=== PATIENT | male | born 1945 | race Caucasian/White ===

== ENCOUNTER 2016-10-23 10:54 | Emergency (ER) ==
[2016-10-23] MEDS ORDERED: XYLOCAINE-MPF 1% INJ ONE (11:34)
[2016-10-23] MEDS ORDERED: DECADRON IM ONE (11:34)
--- NOTE | 2016-10-23 11:36 | PROVIDER DOCUMENTATION ---
[facility]-EE General - General Chief Complaint: Eye Complaint Stated Complaint: EYE INFECTION/SWELLING Time Seen by Provider: 10/23/16 11:14 Source: patient Allergies/Adverse Reactions: Patient Allergies Allergy/AdvReac Type Severity Reaction Status Date / Time Penicillins Allergy SHORTNESS Verified 06/21/16 15:04 OF BREATH Home Medications: Home Medication List Medication Instructions Recorded Confirmed Last Taken Type Simvastatin 40 mg PO DAILY 03/25/16 06/21/16 Unknown History Diltiazem [Cardizem] 60 mg PO BID 06/21/16 06/21/16 Unknown History Lorazepam [Ativan] 0.5 mg PO BID PRN #20 tablet 06/21/16 Unknown Rx Omeprazole [Prilosec] 20 mg PO DAILY@0700 #30 capsule 06/21/16 Unknown Rx - History of Present Illness-EENT General Nature of Presenting Problem: patient is a 71 y/o M that presents to the ER with right eye swelling, pain, drainage x 3 days. has gotten worse. denies injury. report rubbing it and making it worse EENT Location: reports: eye (R) Quality of Pain: reports: dull Severity: reports: moderate Onset/Duration: reports: gradual, 3 days ago Timing: reports: still present, getting worse Prearrival Treatment: Initiated no prearrival treatment Associated Symptoms: denies: fever, nasal congestion/drainage, poor fluid intake , sinus infection, tooth pain, voice change Locality of Occurance: Home Similar Symptoms Previously?: No Recently seen or treated by another doctor?: No - Eyes Eye Problem Symptoms: reports: eye pain, burning, itching, redness, matting, orbital swelling, eyelid swelling Apparent Injury?: No Review of Systems - Adult - REVIEW OF SYSTEMS - ADULT Constitutional: denies: chills, fever Eyes: reports: discharge, eye pain, redness Ears, Nose, Mouth & Throat: reports: no symptoms reported Cardiovascular: reports: chest pain (chronic). denies: syncope Respiratory: denies: cough, shortness of breath, wheezing Gastrointestinal: reports: no symptoms reported Genitourinary: reports: no symptoms reported Musculoskeletal: reports: no symptoms reported Integumentary: reports: no symptoms reported Neurological: reports: no symptoms reported Psychiatric: reports: no symptoms reported Endocrine: reports: no symptoms reported Hematologic/Lymphatic: reports: no symptoms reported Allergic/Immunologic: reports: no symptoms reported All Other Systems: Reviewed and Negative Past History - Adult - PAST MEDICAL HISTORY-ADULT Review of Records: reports: Old Records Reviewed, Nursing Assessment Review, Medications Reviewed Major Childhood Illnesses: reports: Hepatitis B Cardiovascular: reports: HTN, hyperlipidemia Gastrointestinal: reports: hepatitis (B) Neurological: reports: dementia Psychiatric: reports: depression, ptsd - PRIOR SURGERIES/PROCEDURES Surgical/Procedure History: reports: orthopedic (extremity) - IMMUNIZATION STATUS Childhood Immunizations: See Nurse Assessment Flu Vaccine: See Nurse Assessment - FAMILY HISTORY Family History: reviewed, not pertinent - SOCIAL HISTORY Smoking: cigarettes, less than 1 pack/day Living Situation: family Physical Exam- EENT - Physical Exam EENT Initial Vital Signs Reviewed: Yes General Appearance: alert, no apparent distress Eye Exam: right eye: other (swelling to upper and lower lid, clear runny eye), bilateral eye: PERRL Ear Exam: bilateral ear: canal normal, TM normal Nasal Exam: normal inspection. negative: foreign body, sinus tenderness Throat Exam: normal mouth inspection, pharynx normal Neck: full range of motion, normal inspection Respiratory: lungs clear, normal breath sounds, no respiratory distress, no accessory muscle use Cardiovascular: regular rate, rhythm, no murmur Extremity: normal range of motion, normal inspection, no pedal edema Integumentary: normal color, warm/dry Neurologic: grossly normal, no motor/sensory deficits Psych/Mental Status: normal mood/affect, normal thought content, normal thought process, oriented x 3 Progress - PLAN OF CARE/RESULTS Progress/Plan/Lab Results: Vital Signs Temp Pulse Resp BP Pulse Ox 10/23/16 10:57 97.9 F 76 18 173/72 95 Penicillins Allergy (Verified 06/21/16 15:04) SHORTNESS OF BREATH Simvastatin 40 mg PO DAILY 03/25/16 Diltiazem [Cardizem] 60 mg PO BID 06/21/16 Lorazepam [Ativan] 0.5 mg PO BID PRN #20 tablet 06/21/16 Omeprazole [Prilosec] 20 mg PO DAILY@0700 #30 capsule 06/21/16 Orders Category Date Time Status Visual Acuity DIRECTED Care 10/23/16 11:34 Active Dexamethasone [Decadron] Med 10/23/16 11:34 Discontinued 8 mg IM NOW ONE Lidocaine 1% Pf [Xylocaine-Mpf 1%] Med 10/23/16 11:34 Discontinued 5 ml INJ NOW ONE EKG [EKG] Stat Ther 10/23/16 11:34 Ordered pt will be d/c home f/u with ophthamologist. pt was clinically stable, understood instructions and results, rx given Departure - Departure Time of Disposition Order: 12:39 DIAGNOSIS: Conjunctivitis Qualifiers: Conjunctivitis type: acute Acute conjunctivitis type: bacterial Laterality: right Qualified Code(s): H10.31 - Unspecified acute conjunctivitis, right eye Disposition: HOME 01 Certified Medical Emergency: Emergent Condition: Stable Additional Instructions: follow up with eye doctor ED Follow Up Instructions: You have been treated by a care provider in the Emergency Department. These instructions are being provided to you so you can have an understanding of how to care for yourself upon discharge. Upon discharge from the Emergency Department, you are responsible for making arrangements for follow-up care by a physician of your choice. Take all prescribed medications as directed. Return to the Emergency Department immediately for any new or worsening symptoms. You may call the Physician Referral phone number at [phone] to obtain a list of Physicians who are taking new patients. Referrals: None,PCP [Primary Care Provider] - Baldo Bell Jr, MD [STAFF PHYSICIAN] - (as needed) Instructions: Bacterial Conjunctivitis, [id number] Attestation - Scribe Verification/Attestation Scribe:: Erick Goodman Acting as Scribe for:: Wendy Patiño Scribe documention review:: This chart was documented by a scribe and accurately reflects the service the provider performed and the decisions made by the provider. Physician Attestation - Physician Attestation I, the provider, attest to the following statement:: Wendy Patiño Physician documentation Attestation:: This documentation recorded by the scribe accurately reflects the service I personally performed and the decisions made by me.
[2016-10-23 12:44] VITALS: BP 141/73
--- NOTE | 2016-10-23 13:32 | EKG Report ---
Test Performed on : 10/23/2016 1:09:18 PM Test Reason : Chronic CP, no pain currently Blood Pressure : / mmHG Vent. Rate : 049 BPM Atrial Rate : 049 BPM P-R Int : 180 ms QRS Dur : 086 ms QT Int : 440 ms P-R-T Axes : 072 070 073 degrees QTc Int : 397 ms Sinus bradycardia. Otherwise normal ECG When compared with ECG of 21-JUN-2016 16:58, No significant change was found Unconfirmed Result
== END 2016-10-23 13:17 | disposition home or self-care (01) ==
LOC: P.ED 10:54
DX: H10.31 Unspecified acute conjunctivitis, right eye (principal); H57.11 Ocular pain, right eye; R22.0 Localized swelling, mass and lump, head; G89.29 Other chronic pain; R07.9 Chest pain, unspecified; I10 Essential (primary) hypertension; E78.5 Hyperlipidemia, unspecified; B19.10 Unspecified viral hepatitis B without hepatic coma; F17.210 Nicotine dependence, cigarettes, uncomplicated; Z79.899 Other long term (current) drug therapy
CPT/HCPCS: 93005; 96372; J1100

== ENCOUNTER 2017-04-01 14:09 | Inpatient (IN) ==
[2017-04-01] MEDS ORDERED: NS 1,000 ML IV ONE (14:47)
--- NOTE | 2017-04-01 14:51 | Diag Imaging Result Doc PS360 ---
EXAM: CHEST-1 VIEW HISTORY: HIP FRACTURE TECHNIQUE: PA COMPARISON: 06/21/2016 FINDINGS: There is cardiomegaly.. The pulmonary vasculature is not congested. No infiltrate, effusion, or pneumothorax is appreciated. IMPRESSION: Cardiomegaly. . Electronically signed by Shirley Quinonez 04/01/2017 2:48 PM
--- NOTE | 2017-04-01 15:14 | Diag Imaging Result Doc PS360 ---
EXAM: XRAY PELVIS W/HIP 2-3VW RT HISTORY: fall TECHNIQUE: Three views COMPARISON: None. FINDINGS: There is a fracture through the right temporal neck there is angulation. There is no dislocation. There is diffuse joint space narrowing. IMPRESSION: Right femoral neck fracture. Electronically signed by Shirley Quinonez 04/01/2017 3:12 PM
[2017-04-01 15:19] LABS: BASO% 0.1 % (0.0-0.8); EOS# 0.01 X1000 (0.0-0.7); EOS% 0.1 % (0.0-10.0); HEMATOCRIT 41.4 % (42.0-52.0); HEMOGLOBIN 14.4 g/dL (14.0-18.0); IMM GRAN# 0.04 X1000 (0.0-0.04); IMM GRAN% 0.3 % (0.0-0.5); LYMPH# 0.99 X1000 (1.2-3.4); MANUAL DIFF NEEDED? NO; MCH 30.8 PG (27-31); MCHC 34.8 g/dL (33-37); MCV 88.5 FL (81-99); MONO# 0.69 X1000 (0.11-0.59); MONO% 4.9 % (1.7-9.3); MPV 9.9 FL (7.4-10.4); NEUT% 87.6 % (42.2-75.2); PLT 163 X1000 (130-400); RBC 4.68 XMIL (4.7-6.1)
--- NOTE | 2017-04-01 15:20 | EKG Report ---
Test Performed on : 04/01/2017 2:59:30 PM Test Reason : CHEST PAIN Blood Pressure : / mmHG Vent. Rate : 063 BPM Atrial Rate : 063 BPM P-R Int : 162 ms QRS Dur : 078 ms QT Int : 404 ms P-R-T Axes : 068 075 074 degrees QTc Int : 413 ms Normal sinus rhythm. Normal ECG When compared with ECG of 23-OCT-2016 13:09, No significant change was found Unconfirmed Result
[2017-04-01 15:27] LABS: INR 0.93 (0.86-1.15); PROTIME 13.2 Seconds (12.1-15.5); PTT PL 31.7 Seconds (22.6-43.9)
[2017-04-01 15:48] LABS: AGAP 12; ALBUMIN 4.1 g/dL (3.5-5.0); ALKALINE PHOSPHATASE 78 U/L (32-122); BUN 13 mg/dL (8-22); CALCIUM 8.4 mg/dL (8.8-10.2); CHLORIDE 97 mmol/L (98-107); CK PROFILE 95 U/L (24-204); COSMO 269; GOT 14 U/L (10-34); GPT 11 U/L (10-44); MAGNESIUM 2.1 mg/dL (1.5-2.7); POTASSIUM 3.8 mmol/L (3.5-5.1); SODIUM 133 mmol/L (136-145); TCO2 24 mmol/L (25-35); TOTAL PROTEIN 7.2 g/dL (6.3-8.3)
[2017-04-01] MEDS ORDERED: ZOFRAN IV ONE (15:57)
[2017-04-01] MEDS ORDERED: DILAUDID IV ONE ×2 (15:57→16:37)
--- NOTE | 2017-04-01 16:11 | PROVIDER DOCUMENTATION ---
This chart was entered by Denisha Mar Scribe, acting as scribe for Wendy Patiño MD. HPI-Musculoskeletal Pain/Inj - GENERAL Chief Complaint: Fall Stated Complaint: fall Time Seen by Provider: 04/01/17 14:23 Source: patient - HX OF PRESENT ILLNESS-MUSKULOSKELTAL Nature of Presenting Problem: Patient is a 72 year old male who presents in the ED via EMS for fall injuries. He states he was trying to put his shoes on when he lost his balance, fell, and landed on his right hip. He also states he has had right hip pain since the fall , and states he has been unable to move his right hip/fall. He reports he landed on wood jennifer, and nursing staff states patient was given Fentanyl IV en route to ED per EMS. Patient denies loss of consciousness, chest pain, abdominal pain, and any other symptoms/injuries. Quality of Pain: reports: sharp Severity in ED: moderate, severe Onset/Duration: abrupt, just prior to arrival Timing: still present Modifying Factors: improves with: nothing Any recent injury?: Yes (fall just prior to arrival in ED) Similar Symptoms Previously?: No Recently seen or treated by another doctor?: No - FALL INJURY Location of Pain/Injury: reports: pelvis (right hip) Pain Radiation: reports: no radiation Reason for Fall: reports: lost balance Symptoms prior to fall:: reports: none Loss of Consciousness: no loss of consciousness Injury Associated Symptoms: reports: other (right hip pain) Review of Systems - Adult - REVIEW OF SYSTEMS - ADULT Constitutional: reports: no symptoms reported Eyes: reports: no symptoms reported Ears, Nose, Mouth & Throat: reports: no symptoms reported Cardiovascular: reports: no symptoms reported. denies: chest pain Respiratory: reports: no symptoms reported Gastrointestinal: reports: no symptoms reported. denies: abdominal pain Genitourinary: reports: no symptoms reported Musculoskeletal: reports: joint pain (right hip pain/injury post-fall) Integumentary: reports: no symptoms reported Neurological: reports: no symptoms reported Psychiatric: reports: no symptoms reported Endocrine: reports: no symptoms reported Hematologic/Lymphatic: reports: no symptoms reported Allergic/Immunologic: reports: no symptoms reported All Other Systems: Reviewed and Negative Past History - Adult - PAST MEDICAL HISTORY-ADULT Review of Records: reports: Old Records Reviewed, Nursing Assessment Review, Medications Reviewed Major Childhood Illnesses: reports: Hepatitis B Cardiovascular: reports: HTN, hyperlipidemia Gastrointestinal: reports: hepatitis (B) Obstetrical/Gynecological: reports: denies history Genitourinary: reports: denies history Musculoskeletal: reports: denies history Neurological: reports: dementia Psychiatric: reports: depression, ptsd Endocrine/Immune: reports: denies history Other Conditions: reports: denies history - PRIOR SURGERIES/PROCEDURES Surgical/Procedure History: reports: orthopedic (extremity) - IMMUNIZATION STATUS Childhood Immunizations: See Nurse Assessment Flu Vaccine: See Nurse Assessment - FAMILY HISTORY Family History: reviewed, not pertinent - SOCIAL HISTORY Smoking: cigarettes Substance Use: none/never Alcohol Use Frequency: never Living Situation: family Physical Exam-Injury Related - Physical Exam-Injury Related Initial Vital Signs Reviewed: Yes General Appearance: alert, no apparent distress Immobilization?: negative: backboard, C-collar, applied in ED, applied ERGONOMIC SPECIALIST Eyes: PERRL/EOMI, pink conjunctivae Head, Ears, Nose, Mouth & Throat: normocephalic/atraumatic, moist mucous membranes Neck: non-tender, full range of motion, supple, normal inspection Respiratory: chest non-tender, lungs clear, normal breath sounds, no pleuratic chest pain, no respiratory distress, no accessory muscle use Cardiovascular: normal peripheral pulses, regular rate, rhythm, no edema, no gallop, no JVD, no murmur Chest/Breast: deferred Abdominal Exam: non tender, soft, no organomegaly, no pulsatile mass Female Genitalia/Pelvic Exam: deferred Male Genitalia: deferred Rectal Exam: deferred Hemoccult Exam: deferred Lymphatic: no adenopathy Back Exam: normal inspection, no CVA tenderness, no vertebral tenderness Extremity: no pedal edema, no calf tenderness, other (right hip tender to palpation and limited ROM secondary to pain) Integumentary: normal color, warm/dry Neurologic: grossly normal, no motor/sensory deficits Psych/Mental Status: normal mood/affect, normal thought content, normal thought process, oriented x 3 - Glascow Coma Score Best Eye Response ([place]): (4) open spontaneously Best Verbal Response ([place]): (5) oriented Best Motor Response ([place]): (6) obeys commands Rowena Total: 15 Progress - PLAN OF CARE/RESULTS Progress/Plan/Lab Results: Vital Signs - 8 hr 04/01/17 14:09 Temperature 98 F Pulse Rate 63 Respiratory Rate 18 Blood Pressure 196/100 O2 Sat by Pulse Oximetry 96 Laboratory Results - last 24 hr 04/01/17 04/01/17 04/01/17 15:00 15:00 15:00 WBC RBC Hgb Hct MCV MCH MCHC RDW Std Deviation Plt Count MPV Immature Gran % (Auto) Neut % (Auto) Lymph % (Auto) [place] % (Auto) Eos % (Auto) Baso % (Auto) Immature Gran # (Auto) Neut # (Auto) Lymph # (Auto) [place] # (Auto) Eos # (Auto) Baso # (Auto) PT INR APTT (Factor Assay) Sodium 133 L Potassium 3.8 Chloride 97 L Carbon Dioxide 24 L Anion Gap 12 BUN 13 Creatinine 1.1 Estimated GFR/1.73 m2 > 60 BUN/Creatinine Ratio 12 Glucose 149 H Calculated Osmolality 269 Calcium 8.4 L Magnesium 2.1 Total Bilirubin 0.30 AST 14 ALT 11 Alkaline Phosphatase 78 Creatine Kinase 95 Troponin T < 0.010 Wph-U-Ugoedbtzety Pept 147 Total Protein 7.2 Albumin 4.1 Globulin 3.0 Albumin/Globulin Ratio 1.0 04/01/17 04/01/17 15:00 15:00 WBC 14.16 H RBC 4.68 L Hgb 14.4 Hct 41.4 L MCV 88.5 MCH 30.8 MCHC 34.8 RDW Std Deviation 13.6 Plt Count 163 MPV 9.9 Immature Gran % (Auto) 0.3 Neut % (Auto) 87.6 H Lymph % (Auto) 7.0 L [place] % (Auto) 4.9 Eos % (Auto) 0.1 Baso % (Auto) 0.1 Immature Gran # (Auto) 0.04 Neut # (Auto) 12.41 H Lymph # (Auto) 0.99 L [place] # (Auto) 0.69 H Eos # (Auto) 0.01 Baso # (Auto) 0.02 PT 13.2 INR 0.93 APTT (Factor Assay) 31.7 Sodium Potassium Chloride Carbon Dioxide Anion Gap BUN Creatinine Estimated GFR/1.73 m2 BUN/Creatinine Ratio Glucose Calculated Osmolality Calcium Magnesium Total Bilirubin AST ALT Alkaline Phosphatase Creatine Kinase Troponin T Fpu-F-[place]ht Pept Total Protein Albumin Globulin Albumin/Globulin Ratio Orders Category Date Time Status Cardiac Monitoring DIRECTED Care 04/01/17 14:47 Active Saline Loc NOW Care 04/01/17 14:47 Active CHEST-1 VIEW [RAD] Routine Exams 04/01/17 14:38 Completed XRAY PELVIS W/HIP 2-3VW RT [RAD] Stat Exams 04/01/17 14:21 Completed CBC WITH ELECTRONIC DIFF [HEME] Stat Lab 04/01/17 15:00 Completed CK PROFILE [SP CHEM] Stat Lab 04/01/17 15:00 Completed COMPREHENSIVE METABOLIC PANEL [CHEM] Stat Lab 04/01/17 15:00 Completed MAGNESIUM [CHEM] Stat Lab 04/01/17 15:00 Completed PRO B-NATRIURETIC PEPTIDE Stat Lab 04/01/17 15:[address] Com[address]IME WITH INR PL [COAG] Stat Lab 04/01/17 15:[address] [COAG] Stat Lab 04/01/17 15:00 Completed TROPONIN T Stat Lab 04/01/17 15:00 Completed 0.9% Sodium Chloride Inj [Ns] 1,000 ml Med 04/01/17 14:47 Active IV 150 mls/hr Hydromorphone [Dilaudid] Med 04/01/17 15:57 Discontinued 1 mg IV NOW ONE Ondansetron [Zofran] Med 04/01/17 15:57 Discontinued 4 mg IV NOW ONE EKG [EKG] Stat Ther 04/01/17 14:47 Draft Result Diagrams: 04/01/17 15:00 04/01/17 15:00 - XRAY 1 XRAY Study: Chest XRAY Interpretation: cardiomegaly. 2 XRAY: Right XRAY Study: Pelvis Impression: Abnormal XRAY Interpretation: right femoral neck fracture. - CONSULTS/PCP/HOSPITALIST Notification #1 *Consult/PCP/Hospitalist*: Reihl Time Discussed: 16:00 Reason/Comments: recommends sending to [facility] - will consult Consult Disposition: other (will consult) #2 Consult: [place] Time Discussed: 16:02 Consult Disposition: Admit Departure - Departure Date of Disposition Decision: 04/01/17 Time of Disposition Decision: 16:03 DIAGNOSIS: Fracture of femoral neck, right Disposition: ADMITTED INPATIENT 09 Certified Medical Emergency: Emergent Condition: Stable Referrals and Follow-Ups: None,PCP [Primary Care Provider] - - Critical Care Note This patient required my direct & personal management of CC.: No Attestation - Physician/ LIZBETH Attestation Patient care was provided by Advanced Practice Provider:: No The physician spent face to face time with patient:: Yes Advanced Practice Provider documentation review:: Supervising physician onsite and consulted in the evaluation and care of this patient. The physician did have a face to face encounter with the patient. This chart was documented by the indicated scribe, (Denisha Mar Scribe) and accurately reflects the services I performed and decisions made by me, Wendy Patiño MD, as attested by the provider's signature.
--- NOTE | 2017-04-01 16:11 | ED EKG INTERP ---
This chart was entered by Denisha Mar Scribe, acting as scribe for Wendy Patiño MD. EKG Interpretation - EKG Time of EKG reading by physician:: 14:59 EKG Read and Signed by:: Wendy Patiño EKG Interpretation (*Must complete 3 of following elements*): Normal Rate: 63 Rhythm: normal sinus rhythm [place]: normal QRS: normal AK Interval: normal ST Wave: normal Attestation - Physician/ LIZBETH Attestation Patient care was provided by Advanced Practice Provider:: No The physician spent face to face time with patient:: Yes Advanced Practice Provider documentation review:: Supervising physician onsite and consulted in the evaluation and care of this patient. The physician did have a face to face encounter with the patient. This chart was documented by the indicated scribe, (Denisha Mar Scribe) and accurately reflects the services I performed and decisions made by me, Wendy Patiño MD, as attested by the provider's signature.
[2017-04-01] MEDS ORDERED: APRESOLINE IV ONE (16:37)
--- NOTE | 2017-04-01 17:56 | HISTORY AND PHYSICAL ---
CHIEF COMPLAINT: Fall with right hip pain. HISTORY OF PRESENT ILLNESS: This is a very pleasant, 72-year-old male who presented to the emergency room via EMS after falling. He stated that he was trying to put his shoes on and he lost his balance and landed on his right hip. He developed severe pain at the time of impact which continues. RLE is shortened and externally rotated. Range of motion is limited to pain. Pedal pulse palpable, capillary refill < 10 sec, right foot. He denies any loss of consciousness, any dizziness or syncopal episodes. X-ray of the right hip and pelvis revealed a fracture through the right femoral neck with angulation, no dislocation. There is a diffuse joint space narrowing. PAST MEDICAL HISTORY: Hypertension, hyperlipidemia, hepatitis B, PTSD, and depression. PAST SURGICAL HISTORY: Arthroscopic to knee. SOCIAL HISTORY: He smokes half a pack a day. He denies alcohol. He did quit 15 years ago, and no illicit drug use. ALLERGIES: Penicillin which causes shortness of breath. HOME MEDICATIONS: Seroquel 50 mg at bedtime, Cardura 2 mg at bedtime, Cardizem 60 b.i.d., Celexa 20 at bedtime. REVIEW OF SYSTEMS: A 14 point review of systems is discussed with the patient with pertinent positives stated in HPI. He denied any palpitations, syncope, dizziness, nausea , vomiting, diarrhea, constipation, black or bloody vomitus, black or bloody stools, any shortness of breath, PND, orthopnea, cough, any issues. PHYSICAL EXAMINATION: GENERAL: This is a 72-year-old male who is lying in the bed, in no distress. VITAL SIGNS: Blood pressure is 178/86, with heart rate of 63, respirations are 18, temperature is 98 degrees with room air saturations 96%-97%. HEENT: Head is normocephalic, atraumatic. Pupils equal, round, react to light. EOMs are intact. Sclerae anicteric. Mucous membranes are moist. NECK: Supple. Trachea midline. CARDIOVASCULAR: Regular rate and rhythm. S1, S2 appreciated. PULMONARY: Breath sounds are clear. No increased work of breathing noted. GASTROINTESTINAL: Abdomen is soft, nontender, nondistended with bowel sounds in all 4 quadrants. EXTREMITIES: No clubbing, cyanosis, or edema. Calves are nontender. Pulses are palpable x4. MUSCULOSKELETAL: She has good range of motion to extremities, excluding his right lower extremity, he has limited range of motion due to pain. DIAGNOSTIC: WBC is 14.1, with hemoglobin 14, hematocrit 41, and platelets of 163,000. Sodium is 133, potassium 3.8, BUN 13, creatinine 1.1, with a glucose of 149. X-ray of the hip and pelvis revealed right femoral neck fracture. ASSESSMENT: 1. Right femoral neck fracture. 2. Hypertension. 3. History of dementia. 4. History of hepatitis B. 5. Tobacco use and abuse. PLAN: He will be transferred to [facility] [place] for orthopedics consult and repair. . We will identify his home medications and continue as appropriate. He will receive IV pain and nausea medications. Further treatments pending hospital course. Dictated by VIVIAN Esposito for Diego Kay MD cc: VIVIAN Esposito MD MTDD
[2017-04-01] MEDS ORDERED: PNEUMOVAX 23 IM ONE (20:00)
[2017-04-01] MEDS ORDERED: TYLENOL PO PRN (20:46)
[2017-04-01] MEDS ORDERED: NS 1,000 ML IV SCH (20:46)
[2017-04-01] MEDS ORDERED: ZOFRAN IV PRN (20:46)
[2017-04-01] MEDS ORDERED: DILAUDID IV PRN (20:46)
[2017-04-01] MEDS ORDERED: NS 1,000 ML ONE (20:56)
[2017-04-01] MEDS ORDERED: DILAUDID ONE (20:56)
[2017-04-01] MEDS: SEROQUEL PO SCH (21:01)
[2017-04-01] MEDS: CELEXA PO SCH (21:01)
[2017-04-01] MEDS: CARDIZEM PO SCH (21:01)
[2017-04-01] MEDS ORDERED: NICODERM PATCH TD ONE (21:15)
[2017-04-01 22:36] LABS: URINE SOURCE CATH
[2017-04-01 22:40] LABS: BILIRUBIN URINE NEGATIVE (NEGATIVE); BLOOD URINE MODERATE (NEGATIVE); COLOR YELLOW; GLUCOSE URINE NEGATIVE (NEGATIVE); LEUKOCYTES URINE LARGE (NEGATIVE); NITRITE URINE POSITIVE (NEGATIVE); PH URINE 7.5; PROTEIN URINE TRACE mg/dL (NEGATIVE); SP GRAVITY URINE 1.016; TURBIDITY URINE HAZY (CLEAR); URINE MICRO REVIEW NEEDED? YES; UROBILINOGEN URINE NORMAL (NORMAL)
[2017-04-01 22:47] LABS: UR EPITHELIAL CELLS <10 /HPF (<10); URINE BACTERIA 4+ /HPF; URINE CULTURE NEEDED? YES; URINE WBC TNTC /HPF (<10)
[2017-04-01 23:09] LABS: URINE CASTS NONE SEEN
[2017-04-02] MEDS: CARDURA PO SCH ×2 (00:06→20:37)
[2017-04-02] MEDS: DILAUDID IV PRN ×2 (06:14→09:35)
[2017-04-02 06:37] LABS: INR 1.02; PROTIME 10.7 Seconds (9.2-11.7); PTT 28.7 Seconds (22.0-36.0)
[2017-04-02 06:39] LABS: BASO% 0.1 % (0.0-0.8); HEMATOCRIT 39.9 % (42.0-52.0); HEMOGLOBIN 13.8 g/dL (14.0-18.0); LYMPH# 1.05 X1000 (1.2-3.4); LYMPH% 8.7 % (20.5-51.1); MANUAL DIFF NEEDED? YES; MCH 30.9 PG (27-31); MCHC 34.6 g/dL (33-37); MCV 89.5 FL (81-99); MONO# 0.66 X1000 (0.11-0.59); MONO% 5.5 % (1.7-9.3); MPV 10.2 FL (7.4-10.4); NEUT% 85.7 % (42.2-75.2); PLT 143 X1000 (130-400); RBC 4.46 XMIL (4.7-6.1)
[2017-04-02 06:50] LABS: LYMPHS 9 % (21-51); MONO 3 % (1-9)
[2017-04-02 06:53] LABS: AGAP 17; BUN 15 mg/dL (8-22); CALCIUM 7.7 mg/dL (8.8-10.2); CHLORIDE 95 mmol/L (98-107); COSMO 268; POTASSIUM 4.2 mmol/L (3.5-5.1); SODIUM 133 mmol/L (136-145); TCO2 21 mmol/L (25-35)
[2017-04-02] MEDS: CARDIZEM PO SCH ×3 (09:36→20:37)
[2017-04-02] MEDS ORDERED: QUELICIN (DOSE) ONE (10:14)
[2017-04-02] MEDS ORDERED: XYLOCAINE-MPF 2% ONE (10:14)
[2017-04-02] MEDS ORDERED: DIPRIVAN 1% ONE (10:15)
[2017-04-02] MEDS ORDERED: NEOSPORIN G.U. IRRIGANT ONE (10:19)
[2017-04-02] MEDS ORDERED: KEFZOL 2 GM/D5W 2 GM/50 ML IVPB ONE (10:39)
[2017-04-02] MEDS ORDERED: OFIRMEV 1000 MG/ISOTONIC SOLN 0 MG/0 ML BOTTLE ONE (11:11)
[2017-04-02] MEDS ORDERED: OFIRMEV 1000 MG/ISOTONIC SOLN 1,000 MG/100 ML BOTTLE ONE (11:12)
[2017-04-02] MEDS ORDERED: MORPHINE ONE (11:15)
[2017-04-02] MEDS ORDERED: ZOFRAN ONE (11:17)
--- NOTE | 2017-04-02 11:20 | CONSULTATION ---
DATE OF CONSULTATION: 04/02/2017 ADMITTING PHYSICIAN: Dr. Angus Kay. CONSULTING PHYSICIAN: Dr. Kevin Álvarez. CHIEF COMPLAINT: Right hip pain. HISTORY OF PRESENT ILLNESS: Mr. Miller is a 72-year-old, white male who has experienced right hip pain status post a mechanical fall at his home yesterday. He was brought to the emergency room at [facility] where findings were consistent with a right femoral neck fracture. He denies any other associated injuries, head trauma, alterations in mental status, or visual disturbances. Primary care provider: He receives his care through the [facility]. ALLERGIES: Penicillin. PAST MEDICAL HISTORY: 1. Hypertension. 2. Hyperlipidemia. 3. Posttraumatic stress disorder. 4. Depression. 5. Dementia. 6. Carotid artery disease. 7. Benign prostatic hypertrophy. 8. History of kidney stones. PAST SURGICAL HISTORY: Lymph node excision. SOCIAL HISTORY: The patient is a . He maintains his own home. He is an every day smoker. HOME MEDICATIONS: 1. Xanax 1 mg 3 times a day. 2. Seroquel 50 mg at bedtime. 3. Cardura 2 mg at bedtime. 4. Cardizem 60 mg twice daily. 5. Celexa 20 mg at bedtime. REVIEW OF SYSTEMS: HEENT: Mr. Miller has a known history of carotid artery disease which is followed by the [facility]. Denies any recent dizzy spells or syncopal events. Cardiac: The patient has a history of high blood pressure. He also reports some atypical chest pain which is intermittent and not related to exertion. He is in no pain at this time. Pulmonary: The patient is a long-term smoker. Gastrointestinal: He has a history of gastritis and reports symptoms consistent with a history of reflux disease. Genitourinary: He has a history of kidney stones and also has benign prostatic hypertrophy. Neurological: He reports some mild dementia. He is his own outpatient scheduler. He has a history of posttraumatic stress disorder and depression. Musculoskeletal: He is here today for right hip fracture. Other: He is treated for hyperlipidemia. He has a history of prior hepatitis B exposure. PHYSICAL EXAMINATION: The patient is resting comfortably in bed. His daughter is at his bedside. He is articulate and able answer all questions.HEENT: Head is normocephalic, atraumatic. Pupils are equal, round. Nares are patent. Neck: Supple. Heart: Regular rate and rhythm. No murmurs, gallops, or rubs. Lungs: Clear to auscultation bilaterally. Abdomen: Round. Bowel sounds are present. It is nontender. Genitourinary: He has a Chew catheter in. Neurological: Gross motor function and sensory is intact on the right lower extremity. Musculoskeletal: Right lower extremity no gross deformities, edema or ecchymosis is noted. He has a good peripheral pulse. Other: He has a right elbow area of ecchymosis. IMPRESSION: Right femoral neck fracture. PLAN OF CARE: When medically clear we recommend proceeding with a right bipolar hemiarthroplasty. The risks and benefits of the procedure were explained to the patient including the risk of anesthesia, , bleeding, infection, damage to tendons, ligaments, nerves, blood vessels, the possibility of blood clots and other imponderables were discussed, and the patient and his family wished to proceed with operative management at this time. Dictated by JOE Dunn for Randolph Álvarez MD cc: JOE Dunn MD
--- NOTE | 2017-04-02 14:38 | OPERATIVE NOTE ---
PROCEDURE DATE: 04/02/2017 PREOPERATIVE DIAGNOSIS: Displaced right femoral neck fracture. POSTOPERATIVE DIAGNOSES: 1. Displaced right femoral neck fracture. 2. Degenerative joint disease of the hip. PROCEDURE: Right total hip replacement, posterior approach. SURGEONS: Solomon Álvarez MD. MUSHROOM PACKER: JOE Dunn. ANESTHESIA: General. COMPLICATIONS: None. PROCEDURE IN DETAIL: This is a 72-year-old male status post a fall with a displaced right hip fracture of the femoral neck, presents for surgical stabilization and replacement. Risks, benefits, and no guarantees were discussed and he is willing to proceed. He was taken to the operating room and satisfactory anesthesia obtained. He was placed in the lateral position with the right hip upward and all bony prominences padded. The right hip was prepped and draped in usual sterile fashion. A time-out was taken to confirm operative site, procedure, and patient. A posterior approach to the right hip was then undertaken through a curved incision centered over the greater trochanter. Dissection was carried down to the deep fascia in line with the incision. The Charnley retractor was inserted. The piriformis and short external rotators were released off the back of the hip capsule. A capsulotomy incision was made to expose the femoral neck fracture. The fracture was osteotomized for a clean neck cut roughly 8 mm above the lesser trochanter. The femoral head was removed. The acetabulum was inspected and noted to be degenerative with grade 4 chondromalacia in the superior part of the acetabulum. Decision was made to replace the acetabular with a acetabular cup for pain control at that time. Reaming of the acetabulum up to a 57 reamer was then accomplished. A 58 outer diameter DePuy Bagley DuoFix cup was then impacted in the acetabulum roughly 20 degrees of anteversion and 45 degrees of abduction. This had secure press-fit fixation. A 25 length screw was placed in the 12 o'clock position of the cup for additional security. A 10 degree polyethylene liner for a 36 head was impacted into this with a 10 degree buildup over the 10:30 position posteriorly. Sequential broaching of the femoral side was then undertaken with a [employer] Corail broach system up to a size 15 stem. This had secure axial and rotational stability. Standard neck geometry with a 1.5 neck length revealed good range of motion and restorationism of leg length. The stem was removed and a standard neck size 15 Corail stem impacted in the femur in roughly 10 degrees of anteversion with secure axial and rotational stability. A 36 ceramic head was then impacted on this and the hip reduced. Final range of motion revealed no anterior instability in extension and external rotation. The hip was flexed to 90 degrees with neutral adduction and internal rotation up to 80 degrees without dislocation. The wound was copiously irrigated with irrigant. It was repaired over the posterior capsule with interrupted 0 Vicryl, as well as the piriformis repaired with interrupted 0 Vicryl. A Hemovac drain was placed. It was copiously irrigated with irrigant. It was then closed over the drain with #1 Vicryl in the deep fascia, 2-0 Vicryl in the subcutaneous, and skin madi on the skin edges. Sterile dressings completed the closure and the patient was recovered from anesthesia and transferred to the recovery room in stable condition. No intraoperative complications were noted. Instrument count and sponge count was correct at the time of closure. cc: Randolph Álvarez MD
[2017-04-02] MEDS: NARCAN ONE ×3 (14:50→14:58)
[2017-04-02] MEDS ORDERED: ZOFRAN IV PRN (16:29)
[2017-04-02] MEDS ORDERED: MILK OF MAGNESIA PO PRN (16:29)
[2017-04-02] MEDS ORDERED: HALDOL IV PRN (16:29)
[2017-04-02] MEDS: KEFZOL 1 GM/D5W 1 GM/50 ML IVPB IV SCH (18:32)
[2017-04-02] MEDS: TYLENOL PO SCH ×2 (18:32→23:55)
[2017-04-02] MEDS: NS 1,000 ML IV SCH (18:32)
[2017-04-02] MEDS: XANAX PO PRN ×2 (18:44)
[2017-04-02] MEDS: COLACE PO SCH (20:37)
[2017-04-02] MEDS: SODIUM CHLORIDE 0.9% INJ SCH ×2 (20:37)
[2017-04-02] MEDS: PROTONIX IV SCH ×2 (20:37)
[2017-04-02] MEDS: SEROQUEL PO SCH (20:38)
[2017-04-02] MEDS: CELEXA PO SCH (20:38)
[2017-04-02] MEDS: OXY IR PO PRN ×2 (20:42→23:58)
[2017-04-03] MEDS: MORPHINE IV PRN ×10 (01:16→23:31)
[2017-04-03] MEDS: XANAX PO PRN ×3 (01:25→20:31)
[2017-04-03] MEDS: KEFZOL 1 GM/D5W 1 GM/50 ML IVPB IV SCH (02:02)
[2017-04-03] MEDS: NS 1,000 ML IV SCH ×2 (05:10→18:34)
[2017-04-03] MEDS: XARELTO PO SCH (05:10)
[2017-04-03 05:58] LABS: HEMATOCRIT 34.9 % (42.0-52.0); HEMOGLOBIN 11.6 g/dL (14.0-18.0)
[2017-04-03 06:06] LABS: AGAP 13; BUN 17 mg/dL (8-22); CALCIUM 7.2 mg/dL (8.8-10.2); CHLORIDE 97 mmol/L (98-107); COSMO 273; POTASSIUM 4.6 mmol/L (3.5-5.1); SODIUM 135 mmol/L (136-145); TCO2 25 mmol/L (25-35)
--- NOTE | 2017-04-03 08:04 | PROGRESS NOTE ---
DATE: 04/03/2017 SUBJECTIVE: Mr. Miller is seen on postop day 1 status post hip replacement for a fracture. OBJECTIVE: He is afebrile with stable vital signs. There is a mild increased temperature at 100.3. The bandage is clean and dry. He appears to be motor and sensory intact. PLAN: We have asked them to remove the drain, Chew, and IV. He can be mobilized as tolerated. He can be transferred to rehab or discharged home with home therapy Thursday, Thursday, or Thursday pending his overall medical condition. cc: Randolph Álvarez MD
[2017-04-03] MEDS: CARDIZEM PO SCH ×2 (09:59→20:31)
[2017-04-03] MEDS: FERROUS SULFATE PO SCH (09:59)
[2017-04-03] MEDS: PERIDEX MT SCH ×2 (09:59→21:51)
[2017-04-03] MEDS: TYLENOL PO SCH ×3 (09:59→23:32)
--- NOTE | 2017-04-03 16:28 | PROGRESS NOTE ---
DATE: 04/03/2017 SUBJECTIVE: Today Mr. Miller referred to be doing a little better. Still has some pain in the right hip. OBJECTIVE: Vital Signs: Stable. Blood pressure is 128/56, pulse of 87, respirations 16, temperature is 99.7 degrees. General: Mr. Miller is a 72-year-old male. He is in bed. BMI is 25.6. He is not in any distress. HEENT: Mucosa is pink and moist. Anicteric. Acyanotic. Neck: Supple. Chest: Clear. No crepitations. No rhonchi. Cardiovascular: Regular rate and rhythm. Abdomen: Soft. Extremities: No pedal edema. The right lower extremity is internally rotated and is slightly tender on mobilization. He does have some draining system in the surgical wound. ASSESSMENT: 1. Displaced right femoral neck fracture status post right total hip replacement by Dr. Álvarez. 2. Hypertension, stable. 3. Tobacco abuse. Patient has been counseled. 4. Constipation. Will address this more symptomatically. PLAN: So in general Mr. Miller is relatively stable. He is going to be evaluated by PT and start working with him. Social work has also been consulted for rehab placement. cc: Roberto Pires MD
[2017-04-03] MEDS: COLACE PO SCH (20:31)
[2017-04-03] MEDS: CARDURA PO SCH (20:31)
[2017-04-03] MEDS: CELEXA PO SCH (20:31)
[2017-04-03] MEDS: PROTONIX IV SCH (20:31)
[2017-04-03] MEDS: SEROQUEL PO SCH (20:32)
[2017-04-04] MEDS: MORPHINE IV PRN ×7 (02:48→22:13)
[2017-04-04] MEDS: XARELTO PO SCH (05:46)
[2017-04-04 06:19] LABS: HEMATOCRIT 31.5 % (42.0-52.0); HEMOGLOBIN 10.6 g/dL (14.0-18.0)
[2017-04-04 06:34] LABS: AGAP 10; BUN 16 mg/dL (8-22); CALCIUM 7.4 mg/dL (8.8-10.2); CHLORIDE 100 mmol/L (98-107); COSMO 277; POTASSIUM 4.2 mmol/L (3.5-5.1); SODIUM 138 mmol/L (136-145); TCO2 28 mmol/L (25-35)
[2017-04-04] MEDS: CARDIZEM PO SCH ×2 (11:29→20:06)
[2017-04-04] MEDS: OXY IR PO PRN (11:29)
[2017-04-04] MEDS: TYLENOL PO SCH ×2 (11:29→15:50)
[2017-04-04] MEDS: FERROUS SULFATE PO SCH (11:29)
[2017-04-04] MEDS: PERIDEX MT SCH ×2 (11:31→20:07)
--- NOTE | 2017-04-04 14:08 | PROGRESS NOTE ---
DATE: 04/04/2017 SUBJECTIVE: Today Mr. Miller refers to be hurting at the surgical site. He was not able to participate earlier on today for physical therapy because he was going to take a shower. OBJECTIVE: Vital signs: Blood pressure is 158/79, pulse 74, respiration is 15 , temperature 99.5 degrees. General: Mr. Miller is a 72-year-old male. He is in bed, in mild painful distress. HEENT: Mucosa is pink and moist. Anicteric. Acyanotic. Neck: Supple. Chest: Good air entry bilateral. No crepitations. No rhonchi. Cardiovascular: Regular rate and rhythm. No murmurs, no rubs. No gallops. Abdomen: Soft. There is no hepatosplenomegaly. Extremities: No pedal edema. The right lower extremity is slightly internally rotated, is tender on mobilization. The surgical wound is affronted with clips. It looks clean. There is no drainage. LABORATORY DATA: Hemoglobin is 10.6, hematocrit is 31.5. Sodium is 138, potassium is 4.2, chloride is 100, bicarb is 28. ASSESSMENT: 1. Displaced right femoral neck fracture status post right total hip replacement by Dr. Álvarez. Today is day 2 postop. Patient is participating in physical rehabilitation and we plan to discharge the patient to rehab with pending social work supervisor arrangement with the [place] [facility]. 2. Hypertension. Stable. 3. Constipation. Patient will continue with milk of magnesia and MiraLAX. He has had 1 bowel movement since yesterday. 4. Tobacco abuse. Patient has been counseled. 5. Enterobacter cloacae urinary tract infection. We will put the patient on oral levofloxacin which it is sensitive to. In general, I think Mr. Miller is relatively stable. We are going to discontinue the IV fluids since he looks euvolemic, encourage the patient to drink for oral hydration. He will be encouraged to sit up in the chair at least twice per day, and he will continue working with Physical Therapy. We are pending final arrangement for rehab placement. Chew catheter has been discontinued. cc: Roberto Pires MD MTDD
[2017-04-04] MEDS: LEVAQUIN PO SCH (15:50)
[2017-04-04] MEDS: XANAX PO PRN (19:00)
[2017-04-04] MEDS: SEROQUEL PO SCH (20:04)
[2017-04-04] MEDS: COLACE PO SCH (20:04)
[2017-04-04] MEDS: CARDURA PO SCH (20:07)
[2017-04-04] MEDS: CELEXA PO SCH (20:07)
[2017-04-04] MEDS: PROTONIX IV SCH (20:08)
[2017-04-04] MEDS: SODIUM CHLORIDE 0.9% INJ SCH (20:08)
[2017-04-05] MEDS: TYLENOL PO SCH ×3 (01:23→15:45)
[2017-04-05] MEDS: MORPHINE IV PRN (01:23)
[2017-04-05] MEDS: OXY IR PO PRN ×4 (04:44→18:33)
[2017-04-05] MEDS: XARELTO PO SCH (05:50)
[2017-04-05 05:55] LABS: HEMATOCRIT 28.1 % (42.0-52.0); HEMOGLOBIN 9.6 g/dL (14.0-18.0)
[2017-04-05] MEDS: PERIDEX MT SCH ×2 (09:08→21:11)
[2017-04-05] MEDS: FERROUS SULFATE PO SCH (09:08)
[2017-04-05] MEDS: LEVAQUIN PO SCH (09:08)
[2017-04-05] MEDS: CARDIZEM PO SCH ×2 (09:08→21:12)
[2017-04-05] MEDS: XANAX PO PRN ×3 (09:11→21:11)
--- NOTE | 2017-04-05 17:00 | PROGRESS NOTE ---
DATE: 04/05/2017 SUBJECTIVE: Today Mr. Miller referred to be doing relatively fine, does not have any complaints except that he has not had any bowel movement. OBJECTIVE: Vitals: Blood pressure is 137/74, pulse of 75, respiration is 13, temperature 98.6 degrees, patient is saturating 98% on room air. General: Mr. Miller 72-year- old male. He is in bed, no distress. HEENT: Mucosa is pink and moist. Anicteric. Acyanotic. Neck: Supple. Chest: Clear. Cardiovascular: Regular rate and rhythm. No murmurs, no rubs. No gallops. Abdomen: Soft, nontender. There is no hepatosplenomegaly. Extremities: No pedal edema. The right lower extremity is slightly internally rotated with mild tenderness. There is a surgical wound at the right hip laterally looks clean. No drainage. LABORATORY DATA: Hemoglobin is 9.6, hematocrit is 28.1, there is no chemistry for this morning. ASSESSMENT: 1. Displaced right femoral neck fracture status post right total hip replacement by Dr. Álvarez. Today is day 3 postop. Patient is participating with physical therapy. We are pending rehab placement. 2. Constipation. Patient has been started on MiraLAX and milk of magnesia. Has not had any bowel movement. We will do a KUB to make sure there is no any underlying mechanical obstruction and optimize the bowel regimen. 3. Tobacco abuse. Patient has been counseled. 4. Enterobacter cloacae urinary tract infection. Patient is on levofloxacin. So in general we are still waiting on the [place] system to get approval for Mr. Miller to go to rehab for the right hip surgery. cc: Roberto Pires MD [facility]
[2017-04-05] MEDS: PROTONIX IV SCH (21:11)
[2017-04-05] MEDS: CARDURA PO SCH (21:11)
[2017-04-05] MEDS: COLACE PO SCH (21:11)
[2017-04-05] MEDS: SODIUM CHLORIDE 0.9% INJ SCH (21:11)
[2017-04-05] MEDS: CELEXA PO SCH (21:12)
[2017-04-05] MEDS: SEROQUEL PO SCH (21:12)
[2017-04-06] MEDS: OXY IR PO PRN ×5 (00:10→20:23)
[2017-04-06] MEDS: TYLENOL PO SCH ×3 (00:10→15:44)
[2017-04-06] MEDS: XARELTO PO SCH (06:46)
[2017-04-06] MEDS: PERIDEX MT SCH ×2 (08:17→20:23)
[2017-04-06] MEDS: LEVAQUIN PO SCH (08:17)
[2017-04-06] MEDS: CARDIZEM PO SCH ×2 (08:17→20:23)
[2017-04-06] MEDS: FERROUS SULFATE PO SCH (08:17)
[2017-04-06] MEDS: XANAX PO PRN ×2 (08:21→20:23)
--- NOTE | 2017-04-06 11:10 | Diag Imaging Result Doc PS360 ---
EXAM: KUB ABDOMEN INDICATION: obstipation TECHNIQUE: One view COMPARISON: None. FINDINGS: There is increased stool in the colon suggesting possible mild to moderate constipation. There is no obstructive bowel pattern. There is no evidence of large volume free abdominal gas. There is no evidence of organomegaly. IMPRESSION: Somewhat increased stool in the colon suggesting possible mild to moderate constipation. Electronically signed by Randolph Mcmahon 04/06/2017 11:08 AM
[2017-04-06] MEDS: DULCOLAX PR ONE (14:31)
[2017-04-06] MEDS: MIRALAX PO SCH (14:35)
--- NOTE | 2017-04-06 17:14 | PROGRESS NOTE ---
DATE: 04/06/2017 SUBJECTIVE: Today, Mr. Miller refers to be doing okay. He did not have any major complaint, except that he has not had any bowel movement. OBJECTIVE: Vital signs: Blood pressure is 139/59, pulse 80, respirations 20, temperature 98.1 degrees. General: Mr. Miller is a 72-year-old male. He was in bed, did not seem to be in any distress. HEENT: Mucosa is pink and moist. Anicteric. Acyanotic. Neck: Supple. Chest: Clear. No crepitations. No rhonchi. Cardiovascular: Regular rate and rhythm. There is no murmurs, no rubs, no gallops. Abdomen: Soft, nontender. There is no hepatosplenomegaly. Extremities: No pedal edema. The right lower extremity is slightly internally rotated, mildly tender. There is a surgical wound at the right hip laterally. It looks clean. The drainage system has been removed. LABORATORY DATA: None for today. DIAGNOSTIC STUDIES: A KUB done this morning shows somewhat increased stool in colon, suggestive of possible mild to moderate constipation. Of course, the patient has not had any bowel movement. ASSESSMENT: 1. Displaced right femoral neck fracture, status post right total hip replacement by Dr. Álvarez. Today is day 4. The [facility] 2. Constipation. The patient has been started on MiraLAX and milk of magnesia. We will also give him a dose of Dulcolax rectally to help move the bowel. 3. Tobacco abuse. The patient has been counseled. 4. Enterobacter cloacae urinary tract infection. The patient is on levofloxacin. Today is day 2 on the antibiotics. We plan to treat this for a total of 5 days. So, in general, Mr. Miller is relatively stable. He is a , so we are waiting on the [place] System to approved for his rehabilitation placement. We also addressed his constipation, and will continue with his current p.o. antibiotics for a total of 5 days. DISPOSITION: Mr. Miller is clinically stable to be discharged whenever there is a bed available. cc: Roberto Pires MD
--- NOTE | 2017-04-06 18:59 | PROGRESS NOTE ---
DATE: 04/06/2017 Mr. Miller is seen for postop status post hip replacement. At the present time he is afebrile with stable vital signs. The incision looks clean and dry. He is gradually mobilizing. There is no immediate concern for complications such as DVT or infection. He is [facility]. Sanchez can be removed in roughly 12 days. He can be mobilized full weightbearing. Will see him for followup after his rehab is complete. cc: Randolph Álvarez MD
[2017-04-06] MEDS: COLACE PO SCH (20:23)
[2017-04-06] MEDS: SODIUM CHLORIDE 0.9% INJ SCH (20:23)
[2017-04-06] MEDS: PROTONIX IV SCH (20:23)
[2017-04-06] MEDS: CELEXA PO SCH (20:23)
[2017-04-06] MEDS: CARDURA PO SCH (20:27)
[2017-04-06] MEDS: MORPHINE IV PRN (22:49)
[2017-04-06] MEDS: SEROQUEL PO SCH ×2 (22:49→23:25)
[2017-04-07] MEDS: OXY IR PO PRN ×2 (07:51→14:50)
[2017-04-07] MEDS: XARELTO PO SCH (07:52)
[2017-04-07] MEDS: XANAX PO PRN ×2 (07:52→14:50)
[2017-04-07] MEDS: TYLENOL PO SCH ×3 (08:12→17:00)
[2017-04-07] MEDS: LEVAQUIN PO SCH (08:40)
[2017-04-07] MEDS: PERIDEX MT SCH ×2 (08:41→22:04)
[2017-04-07] MEDS: MIRALAX PO SCH (08:41)
[2017-04-07] MEDS: FERROUS SULFATE PO SCH (08:41)
[2017-04-07] MEDS: CARDIZEM PO SCH ×2 (08:41→22:04)
[2017-04-07] MEDS: APRESOLINE PO SCH ×2 (13:55→22:04)
--- NOTE | 2017-04-07 20:06 | PROGRESS NOTE ---
DATE: 04/07/2017 SUBJECTIVE: The patient is resting comfortably in bed. He has no complaints at this time. No acute events noted overnight. OBJECTIVE: Vital Signs: Temperature 98.1 degrees, blood pressure 148/69, heart rate 85, respirations 17, O2 saturations 95% on 3 L nasal cannula. General: This is an elderly male, lying in bed, in no acute distress. Head: Normocephalic, atraumatic. Heart: S1, S2 normal. Regular rate and rhythm. Lungs: Equal air entry bilaterally. No crackles, no rales. Abdomen: Positive bowel sounds. Soft, nontender, nondistended. Extremities: No edema. No cyanosis. No calf tenderness. Neurologic: The patient is alert and oriented. LABS: Hemoglobin 9.6, hematocrit 28. ASSESSMENT AND PLAN: 1. Status post right total hip replacement secondary to a displaced right femoral neck fracture. Continue with physical therapy. [facility] 2. Tobacco dependence. The patient has been counseled about smoking cessation. 3. Urinary tract infection secondary to Enterobacter cloacae. Today is day 3 of antibiotic therapy with Levaquin. 4. Constipation. The patient had a bowel movement today. Continue with scheduled laxative therapy. 5. Anemia. Continue to monitor the patient's hemoglobin and hematocrit. 6. Hypertension. Continue on Cardizem and hydralazine. 7. Anxiety. Continue on Xanax p.r.n. 8. Deep vein thrombosis prophylaxis. Continue on Xarelto. cc: Lizbeth Galaviz MD
[2017-04-07] MEDS: PROTONIX IV SCH (22:03)
[2017-04-07] MEDS: CELEXA PO SCH (22:03)
[2017-04-07] MEDS: COLACE PO SCH (22:03)
[2017-04-07] MEDS: SEROQUEL PO SCH (22:03)
[2017-04-07] MEDS: SODIUM CHLORIDE 0.9% INJ SCH (22:03)
[2017-04-07] MEDS: CARDURA PO SCH (22:04)
[2017-04-08] MEDS: OXY IR PO PRN ×6 (01:57→21:03)
[2017-04-08] MEDS: TYLENOL PO SCH ×3 (01:57→16:49)
[2017-04-08 05:25] LABS: HEMATOCRIT 27.4 % (42.0-52.0); HEMOGLOBIN 9.1 g/dL (14.0-18.0); MCH 31.4 PG (27-31); MCHC 33.2 g/dL (33-37); MCV 94.5 FL (81-99); MPV 9.3 FL (7.4-10.4); RBC 2.9 XMIL (4.7-6.1)
[2017-04-08 05:48] LABS: AGAP 12; BUN 15 mg/dL (8-22); CHLORIDE 99 mmol/L (98-107); COSMO 282; POTASSIUM 4.4 mmol/L (3.5-5.1); SODIUM 141 mmol/L (136-145); TCO2 30 mmol/L (25-35)
[2017-04-08] MEDS: XARELTO PO SCH (05:48)
[2017-04-08] MEDS: APRESOLINE PO SCH ×3 (05:48→21:05)
[2017-04-08] MEDS: CARDIZEM PO SCH ×2 (07:59→21:03)
[2017-04-08] MEDS: PERIDEX MT SCH ×2 (07:59→21:05)
[2017-04-08] MEDS: FERROUS SULFATE PO SCH (07:59)
[2017-04-08] MEDS: MIRALAX PO SCH (08:00)
[2017-04-08] MEDS: LEVAQUIN PO SCH (08:03)
[2017-04-08] MEDS: XANAX PO PRN ×2 (12:11→21:03)
[2017-04-08] MEDS: CELEXA PO SCH (21:03)
[2017-04-08] MEDS: COLACE PO SCH (21:03)
[2017-04-08] MEDS: CARDURA PO SCH (21:03)
[2017-04-08] MEDS: PROTONIX IV SCH (21:04)
[2017-04-08] MEDS: SODIUM CHLORIDE 0.9% INJ SCH (21:04)
[2017-04-09] MEDS: SEROQUEL PO SCH (00:13)
[2017-04-09] MEDS: TYLENOL PO SCH ×3 (00:14→15:42)
--- NOTE | 2017-04-09 04:00 | PROGRESS NOTE ---
DATE: 04/08/2017 SUBJECTIVE: The patient is resting comfortably in bed. No acute events noted overnight. OBJECTIVE: Vital Signs: Temperature 98 degrees, blood pressure 132/45, heart rate 76, respirations 18, O2 saturations 96% on 3 L nasal cannula. General: This is an elderly male, lying in bed, in no acute distress. Head normocephalic atraumatic. Heart: S1, S2 normal. Regular rate and rhythm. Lungs: Equal air entry bilaterally. No crackles, no rales. Abdomen: Positive bowel sounds. Soft, nontender, nondistended. Extremities: No edema. No cyanosis. No calf tenderness. Neurologic: The patient is alert and oriented x3. LABS: White blood cell count 5.5, hemoglobin 9.1, hematocrit 27. Sodium 141, potassium 4.4, chloride 99, CO2 30, BUN 15, creatinine 0.8, glucose 93. ASSESSMENT AND PLAN: 1. Status post right total hip replacement secondary to a displaced right femoral neck fracture. Stable. 2. Tobacco dependence. The patient has been counseled about smoking cessation. 3. Urinary tract infection secondary to Enterobacter cloacae. Today is day 4 of antibiotic therapy with Levaquin. 4. Constipation. Continue on scheduled laxative therapy. 5. Anemia. Stable. 6. Anxiety. Continue on p.r.n. Xanax. 7. Disposition. The patient will be discharged to rehab tomorrow. cc: Lizbeth Galaviz MD
[2017-04-09] MEDS: APRESOLINE PO SCH ×2 (05:31→12:32)
[2017-04-09] MEDS: XARELTO PO SCH (05:32)
[2017-04-09] MEDS: OXY IR PO PRN ×4 (05:36→17:00)
[2017-04-09] MEDS: MIRALAX PO SCH (08:35)
[2017-04-09] MEDS: CARDIZEM PO SCH (08:35)
[2017-04-09] MEDS: PERIDEX MT SCH (08:35)
[2017-04-09] MEDS: FERROUS SULFATE PO SCH (08:35)
[2017-04-09] MEDS: XANAX PO PRN ×2 (08:42→14:09)
[2017-04-09] MEDS: LEVAQUIN PO SCH (09:48)
--- NOTE | 2017-04-09 10:32 | DISCHARGE SUMMARY ---
ADMISSION DATE: 04/01/2017 DISCHARGE DATE: 04/09/2017 CONSULTATIONS: Dr. Álvarez with orthopedics. PERTINENT PROCEDURES: Hip/pelvis x-ray showed a right femoral neck fracture. SURGICAL PROCEDURES: Right total hip replacement, posterior approach performed by Dr. Álvarez. DISCHARGE DIAGNOSES: 1. Status post total hip replacement secondary to displaced right femoral neck fracture. Coxsackie can be removed in roughly 9 days. He can be mobilized full weightbearing. He is being transferred to the [facility] facility, [facility] in [facility]. 2. Tobacco dependence. 3. Urinary tract infection secondary to Enterobacter cloacae. 4. Constipation. 5. Anemia 6. Anxiety HOSPITAL COURSE: Mr. Miller is a 72-year-old male who carries a past medical history of hypertension, hyperlipidemia, hepatitis B, PTSD, and depression. Presented to the ED after falling. He was trying to put his shoes on. He lost his balance and landed on his right hip. He developed severe pain at the time of impact. His right lower extremity was shortened and externally rotated. Range of motion was limited. Pedal pulses were palpable. X-ray of the right hip and pelvis revealed a fracture of the right femoral neck with angulation and no dislocation. There was diffuse joint space narrowing. The patient was transferred from [place] to [facility] for an orthopedic consult with Dr. Álvarez. He was initiated on IV pain medicine to control his pain. He underwent a right total hip replacement with a posterior approach per Dr. Álvarez. His original urinalysis did show 4+ bacteria. It did grow out Enterobacter cloacae. He was started on Levaquin. Mr. Miller has been working with physical therapy. He has been awaiting placement to a [place] facility and has been appropriate for discharge for several days now. He has been approved for [facility] in [place] and will be discharged there today. VITAL SIGNS: Temperature is 98.7 degrees, heart rate 97, respirations 18, blood pressure 157/75, O2 is 99% on 4 L nasal cannula. DISCHARGE DIET: Healthy heart. DISCHARGE MEDICATIONS: As per Dr. Galaviz: 1. Xanax 1 mg p.o. t.i.d. 2. Celexa 20 mg p.o. at bedtime. 3. Cardizem 60 mg p.o. b.i.d. 4. Colace 200 mg p.o. at bedtime. 5. Cardura 2 mg p.o. at bedtime. 6. Apresoline 25 mg p.o. q.8 hours. 7. Levaquin 250 mg p.o. daily for 3 more days. 8. OxyIR 5 mg p.o. q.3 hours p.r.n. pain. 9. Seroquel 50 mg p.o. at bedtime. 10. Xarelto 10 mg p.o. q.24 hours for 21 days. FOLLOWUP: Mr. Miller is being discharged to [facility] in [place] where he will continue to be full weightbearing on his right lower extremity. The madi can come out in roughly 9 days. He will follow up with Dr. Álvarez after rehab in the clinic. He will return to the ED for any worsening of symptoms. DISCHARGE TIME: 32 MINUTES Dictated by VIVIAN Escamilla for Lizbeth Galaviz MD cc: Lizbeth Galaviz MD [facility]
[2017-04-09 12:36] VITALS: BP 118/84
== END 2017-04-09 18:10 ==
LOC: P.ED 14:09 → SUATTDRO 16:58 → 4N 16:58
PROVIDERS: ATTEND Internal Medicine

== ENCOUNTER 2019-01-15 12:30 | Observation (INO) ==
[2019-01-15 13:16] LABS: BASO# 0.01 X1000 (0.0-0.2); BASO% 0.1 % (0.0-0.8); EOS# 0.03 X1000 (0.0-0.7); EOS% 0.3 % (0.0-10.0); HEMATOCRIT 39.5 % (42.0-52.0); HEMOGLOBIN 13.6 g/dL (14.0-18.0); IMM GRAN# 0.03 X1000 (0.0-0.04); IMM GRAN% 0.3 % (0.0-0.5); LYMPH# 0.98 X1000 (1.2-3.4); LYMPH% 9.5 % (20.5-51.1); MCH 31.5 PG (27-31); MCHC 34.4 g/dL (33-37); MCV 91.4 FL (81-99); MONO# 0.76 X1000 (0.11-0.59); MONO% 7.4 % (1.7-9.3); MPV 9.4 FL (7.4-10.4); NEUT# 8.48 X1000 (1.4-6.5); NEUT% 82.4 % (42.2-75.2); PLT 178 X1000 (130-400); RBC 4.32 XMIL (4.7-6.1); WBC 10.29 X1000 (4.8-10.8)
[2019-01-15 13:18] LABS: BLOOD TYPE ARTERIAL; SAMPLE BLOOD
[2019-01-15 13:19] LABS: BE -2.2 mmoll (-3.0-3.0); HCO3-(ACT) 22.8 mmoll (20.0-26.0); METHB 1.8 % (0.0-1.5); O2(CT) 16.1 mL/dL (15.0-23.0); PCO2(98.6) 41 mmHg (35-45); PO2(98.6) 51 mmHg (60-100); SAO2 86.8 % (95.0-100.0); THB 14.1 g/dL (11.5-17.4); pH(98.6) 7.36 (7.35-7.45)
[2019-01-15 13:23] LABS: AGAP 17; ALBUMIN 3.6 g/dL (3.5-5.0); ALKALINE PHOSPHATASE 110 U/L (32-122); BUN 26 mg/dL (8-22); CALCIUM 7.4 mg/dL (8.8-10.2); CHLORIDE 100 mmol/L (98-107); COSMO 280; CREATININE 1.1 mg/dL (0.7-1.2); ESTIMATED GFR > 60; GLUCOSE 128 mg/dL (70-104); GOT 24 U/L (10-34); GPT 14 U/L (10-44); POTASSIUM 4.1 mmol/L (3.5-5.1); SODIUM 137 mmol/L (136-145); TCO2 21 mmol/L (25-35); TOTAL PROTEIN 6.5 g/dL (6.3-8.3)
[2019-01-15 13:35] LABS: ALLEN TEST YES; MODALITY ROOM AIR; O2HB 81.3 % (95.0-99.0)
--- NOTE | 2019-01-15 13:36 | PROVIDER DOCUMENTATION ---
This chart was entered by Christiano Mario Scribe, acting as scribe for Chemo Culver MD. HPI-Musculoskeletal Pain/Inj - GENERAL Chief Complaint: Rib Injury Stated Complaint: EXTREMITY PAIN/RIGHT SIDE Time Seen by Provider: 01/15/19 13:00 Source: patient, family - HX OF PRESENT ILLNESS-MUSKULOSKELTAL Nature of Presenting Problem: Pt is a 73 y/o M present to the ED with left rib pain after a fall 3 days ago. Pt reports tripping on steps landing on his right side. He c/o of mild SOB. He report hx of COPD. Quality of Pain: reports: aching Severity in ED: moderate Onset/Duration: 4 days ago Timing: still present Modifying Factors: improves with: nothing Any recent injury?: No Locality of Occurance: Home Similar Symptoms Previously?: No Recently seen or treated by another doctor?: No - FALL INJURY Location of Pain/Injury: reports: chest, upper extremity Pain Radiation: reports: no radiation Reason for Fall: reports: tripped Symptoms prior to fall:: reports: none Loss of Consciousness: no loss of consciousness Injury Associated Symptoms: reports: arm pain. denies: back/neck pain, diaphoresis, dizziness, headaches, sensory/motor loss, trouble walking - TRUNK INJURY Location of Injury(s)/Pain: reports: chest Context / Method of Injury: reports: fall Associated Symptoms: reports: shortness of breath, pain with breathing. denies: back/neck pain, nausea/vomiting, sensory/motor loss Review of Systems - Adult - REVIEW OF SYSTEMS - ADULT Constitutional: denies: chills, fever Eyes: reports: no symptoms reported Ears, Nose, Mouth & Throat: reports: no symptoms reported Cardiovascular: reports: no symptoms reported Respiratory: reports: shortness of breath. denies: cough, wheezing Gastrointestinal: denies: abdominal pain, nausea, vomiting Genitourinary: reports: no symptoms reported Musculoskeletal: reports: bone pain (right rib pain) Integumentary: reports: no symptoms reported Neurological: reports: no symptoms reported Psychiatric: reports: no symptoms reported Endocrine: reports: no symptoms reported Hematologic/Lymphatic: reports: no symptoms reported Allergic/Immunologic: reports: no symptoms reported All Other Systems: Reviewed and Negative Past History - Adult - PAST MEDICAL HISTORY-ADULT Review of Records: reports: Old Records Reviewed, Nursing Assessment Review, Medications Reviewed Major Childhood Illnesses: reports: Hepatitis B Cardiovascular: reports: HTN, hyperlipidemia Respiratory: reports: denies history Gastrointestinal: reports: hepatitis (B) Obstetrical/Gynecological: reports: denies history Genitourinary: reports: denies history Musculoskeletal: reports: denies history Neurological: reports: dementia Psychiatric: reports: depression, ptsd Endocrine/Immune: reports: denies history Other Conditions: reports: denies history - PRIOR SURGERIES/PROCEDURES Surgical/Procedure History: reports: orthopedic (extremity) - IMMUNIZATION STATUS Childhood Immunizations: See Nurse Assessment Flu Vaccine: See Nurse Assessment - FAMILY HISTORY Family History: reviewed, not pertinent - SOCIAL HISTORY Smoking: cigarettes, greater than 1 pack/day Living Situation: family Physical Exam-Injury Related - Physical Exam-Injury Related Initial Vital Signs Reviewed: Yes General Appearance: alert, no apparent distress Eyes: PERRL/EOMI, pink conjunctivae Head, Ears, Nose, Mouth & Throat: moist mucous membranes, normal ENT inspection, pharynx normal Neck: non-tender, full range of motion, supple, normal inspection Respiratory: lungs clear, normal breath sounds, no pleuratic chest pain, no respiratory distress, no accessory muscle use. negative: chest non-tender (right lateral ribs) Cardiovascular: normal peripheral pulses, tachycardia Abdominal Exam: normal bowel sounds, non tender, soft Back Exam: normal inspection, no CVA tenderness, no vertebral tenderness Extremity: normal range of motion, erythema (skin tear, hematoma right upper arm), pedal edema (2+), tenderness (right arm). negative: normal inspection Integumentary: normal color, warm/dry Neurologic: grossly normal, no motor/sensory deficits Psych/Mental Status: normal mood/affect, normal thought content, normal thought process, oriented x 3 Progress - PLAN OF CARE/RESULTS Progress/Plan/Lab Results: Vital Signs - 8 hr 01/15/19 12:37 Temperature 98.5 F Pulse Rate 102 H Respiratory Rate 18 Blood Pressure 162/54 O2 Sat by Pulse Oximetry 87 L Laboratory Results - last 24 hr 01/15/19 01/15/19 01/15/19 12:50 12:50 12:50 WBC 10.29 RBC 4.32 L Hgb 13.6 L Hct 39.5 L MCV 91.4 MCH 31.5 H MCHC 34.4 RDW Std Deviation 14.0 Plt Count 178 MPV 9.4 Immature Gran % (Auto) 0.3 Neut % (Auto) 82.4 H Lymph % (Auto) 9.5 L [place] % (Auto) 7.4 Eos % (Auto) 0.3 Baso % (Auto) 0.1 Immature Gran # (Auto) 0.03 Neut # (Auto) 8.48 H Lymph # (Auto) 0.98 L [place] # (Auto) 0.76 H Eos # (Auto) 0.03 Baso # (Auto) 0.01 Sodium 137 Potassium 4.1 Chloride 100 Carbon Dioxide 21 L Anion Gap 17 BUN 26 H Creatinine 1.1 Estimated GFR/1.73 m2 > 60 BUN/Creatinine Ratio 24 Glucose 128 H Calculated Osmolality 280 Calcium 7.4 L Total Bilirubin 0.30 AST 24 ALT 14 Alkaline Phosphatase 110 Creatine Kinase 498 H Troponin T Total Protein 6.5 Albumin 3.6 Globulin 3.0 Albumin/Globulin Ratio 1.0 01/15/19 12:50 WBC RBC Hgb Hct MCV MCH MCHC RDW Std Deviation Plt Count MPV Immature Gran % (Auto) Neut % (Auto) Lymph % (Auto) [place] % (Auto) Eos % (Auto) Baso % (Auto) Immature Gran # (Auto) Neut # (Auto) Lymph # (Auto) [place] # (Auto) Eos # (Auto) Baso # (Auto) Sodium Potassium Chloride Carbon Dioxide Anion Gap BUN Creatinine Estimated GFR/1.73 m2 BUN/Creatinine Ratio Glucose Calculated Osmolality Calcium Total Bilirubin AST ALT Alkaline Phosphatase Creatine Kinase Troponin T < 0.010 Total Protein Albumin Globulin Albumin/Globulin Ratio Orders Category Date Time Status CHEST-2 VIEWS [RAD] Stat Exams 01/15/19 13:00 Taken ABG [RESP] Routine Lab 01/15/19 13:02 Received CBC WITH ELECTRONIC DIFF [HEME] Stat Lab 01/15/19 12:50 Completed CK PROFILE [SP CHEM] Stat Lab 01/15/19 12:50 Results COMPREHENSIVE METABOLIC PANEL [CHEM] Stat Lab 01/15/19 12:50 Completed TROPONIN T Stat Lab 01/15/19 12:50 Completed EKG [EKG] Routine Ther 01/15/19 13:00 Ordered Transfer/Admit Order [TRANSFER] Routine Transfer 01/15/19 13:33 Ordered Result Diagrams: 01/15/19 12:50 01/15/19 12:50 - EKG 1 Time of EKG reading by physician:: 13:07 EKG Read and Signed by:: Chemo Culver EKG Interpretation (*Must complete 3 of following elements*): Normal Rate: 93 Rhythm: NSR [place]: normal QRS: normal VT Interval: normal ST Wave: normal - XRAY 1 XRAY Study: Chest Impression: Normal, See EMR Report - CONSULTS/PCP/HOSPITALIST Notification #1 *Consult/PCP/Hospitalist*: Dr Lion; Hospitalist Time Discussed: 13:32 Reason/Comments: admission Consult Disposition: Admit (accepts) Departure - Departure Date of Disposition Decision: 01/15/19 Time of Disposition Decision: 13:35 DIAGNOSIS: COPD (chronic obstructive pulmonary disease) Disposition: ADMITTED INPATIENT 09 Certified Medical Emergency: Emergent Condition: Stable Referrals and Follow-Ups: None,PCP [Primary Care Provider] - Discharge Education: Steps to Quit Smoking, [id number] - Critical Care Note This patient required my direct & personal management of CC.: No Attestation - Physician/ LIZBETH Attestation Patient care was provided by Advanced Practice Provider:: No The physician spent face to face time with patient:: Yes Advanced Practice Provider documentation review:: Supervising physician onsite and consulted in the evaluation and care of this patient. The physician did have a face to face encounter with the patient. This chart was documented by the indicated scribe, (Christiano Mario Scribe) and accurately reflects the services I performed and decisions made by me, Chemo Culver MD, as attested by the provider's signature.
--- NOTE | 2019-01-15 13:38 | Diag Imaging Result Doc PS360 ---
EXAM: CHEST-2 VIEWS INDICATION: cough TECHNIQUE: 2 views COMPARISON: 02/23/2018 FINDINGS: The lungs appear hyperinflated, stable. The lungs are grossly clear. There is no discrete pleural fluid collection or pneumothorax. The cardiomediastinal silhouette and central vasculature are grossly unremarkable. IMPRESSION: Suggestion of COPD that is stable. No definite acute pathology by plain radiograph. Electronically signed by Randolph Mcmahon 01/15/2019 1:36 PM
[2019-01-15 13:50] LABS: CK INDEX 0.8 (0.0-2.5); CK-MB 3.98 ng/mL (0.0-5.0)
[2019-01-15] MEDS ORDERED: SALINE LOCK IV FLUID XX ONE (14:11)
[2019-01-15] MEDS ORDERED: MBX SOLUTION MT PRN (14:23)
[2019-01-15] MEDS ORDERED: ZOFRAN IV PRN (14:23)
--- NOTE | 2019-01-15 14:37 | EKG Report ---
Test Performed on : 01/15/2019 1:07:09 PM Test Reason : emboli Blood Pressure : / mmHG Vent. Rate : 093 BPM Atrial Rate : 093 BPM P-R Int : 144 ms QRS Dur : 086 ms QT Int : 338 ms P-R-T Axes : 046 037 049 degrees QTc Int : 420 ms Normal sinus rhythm. Normal ECG When compared with ECG of 23-FEB-2018 14:49, No significant change was found Unconfirmed Result
[2019-01-15] MEDS: DUONEB (A & A) INH SCH ×3 (16:00→22:55)
[2019-01-15] MEDS: ZITHROMAX 500 MG/NS 500 MG/250 ML IVPB IV SCH (16:09)
[2019-01-15] MEDS: XANAX PO SCH (16:09)
[2019-01-15] MEDS: ROCEPHIN 1 GM in NS 50 ML IV SCH (16:10)
--- NOTE | 2019-01-15 17:06 | Diag Imaging Result Doc PS360 ---
EXAM: RIBS ONLY LEFT INDICATION: fall,c/o left rib pain TECHNIQUE: 4 views COMPARISON: Chest radiograph dated 01/25/2019 FINDINGS: There is a defect at the anterior aspect of the fifth rib on the left consistent with a fracture. There is very minimal displacement. No other discrete rib fracture or intrinsic osseous lesion is appreciated. There is no evidence of pneumothorax or pleural fluid collection. IMPRESSION: Fracture of the anterior aspect of the fifth rib as described. Electronically signed by Randolph Mcmahon 01/15/2019 5:04 PM
--- NOTE | 2019-01-15 17:09 | HISTORY AND PHYSICAL ---
PRIMARY CARE PHYSICIAN: None. CHIEF COMPLAINT: Left rib pain after a fall 3 days ago. Also complains of shortness of breath with history of COPD. HISTORY OF PRESENTING ILLNESS: This is a 73-year-old male who presents to [facility] ER with complaints of left rib pain after a fall 3 days ago. States that he tripped on the steps landing on his right side. Also states he has been feeling shortness of breath that progressively worsened and has a history of COPD. When he arrived to the emergency room he had an O2 saturation of room air of 87%. Chest x-ray showed suggestion of COPD that was stable. No definite acute pathology by plain radiograph. His laboratory data was fairly unremarkable. He did have a mild bump in his creatine kinase at 498 with a CK- MB of 3.98 so he is being admitted for further evaluation and treatment. PAST MEDICAL HISTORY: COPD, hypertension, hyperlipidemia, hepatitis B, depression, PTSD. PAST SURGICAL HISTORY: Of an orthopedic procedure. FAMILY HISTORY: Reviewed and noncontributory. SOCIAL HISTORY: He currently lives with family. States he smokes a pack of cigarettes every 3 days and has done so for 40+ years and denies any alcohol or illicit drug use. ALLERGIES: Penicillin. HOME MEDICATIONS: He takes Xanax 1 mg p.o. t.i.d., Celexa 20 mg p.o. at bedtime, Cardizem 60 mg p.o. daily, solution 5 mL t.i.d. p.r.n. and simvastatin 80 mg p.o. at bedtime. LABORATORY DATA: Showed a white blood cell count of 10.29, hemoglobin 13.6, hematocrit 39.5, platelets 178,000. ABG with a pH of 7.36, pCO2 of 41, PO2 51, bicarb 22.8 and this was all on room air. Sodium of 137, potassium 4.1, chloride 100, CO2 21, BUN of 26, creatinine of 1.1, glucose of 128. Creatine kinase of 498, CK-MB of 3.98, a troponin of less than 0.010. Chest x- ray showed suggestion of COPD that is stable but no definite acute pathology by plain radiograph. REVIEW OF SYSTEMS: He denied any fever, chills, blurred vision, dizziness, chest pain but he did have left rib pain from a fall 3 days prior. Was positive for shortness of breath. Denied a cough, abdominal pain, constipation, diarrhea, burning or hurting with urination. PHYSICAL EXAMINATION: On arrival he had a temperature of 98.5 degrees, pulse 102, respirations 18, blood pressure 162/54, saturating 87% on room air. GENERAL: This is a 73-year-old male who is lying in the bed, answers questions appropriately. HEENT: Normocephalic, atraumatic. Normal ENT inspection. Oropharynx and nares are clear. Pupils are equal, round, reactive to light and accommodation. Extraocular movements are intact. NECK: Normal inspection, normal range of motion. LUNGS: Clear to auscultation bilaterally with equal lung expansion and chest wall movement. HEART: Regular rate and rhythm. No murmurs, rubs, or gallops. ABDOMEN: Soft, nontender, nondistended. Bowel sounds are present x4 quadrants. MUSCULOSKELETAL: He has 5/5 strength x4 extremities. NEUROLOGICAL: The cranial nerves 2-12 appear grossly intact. ASSESSMENT: 1. An acute chronic obstructive pulmonary disease exacerbation. 2. Left-sided rib pain status post fall 3 days ago. 3. Acute respiratory failure. 4. Tobacco abuse. PLAN: He will be admitted to the medical unit, placed on telemetry, O2 per protocol, DuoNeb q.4 hours, Rocephin 1 gram IV q.24, azithromycin 500 mg IV q.24. I am going to do an x-ray of his left ribs and recheck a CBC and BMP in the a.m. Dictated by VIVIAN Cramer for Mario Mcfarland MD Addendum: Patient seen and examined by myself. Agree with VIVIAN note. It reflects my assessment and plan. Patient is being admitted to hospital for acute respiratory failure secondary to COPD exacerbation. Will start IV antibiotics and Duoneb q4hrs PRN. Will monitor patient closely. cc: VIVIAN Cramer MD [facility] PSY[facility]IATRIC CENTERChanel
[2019-01-15] MEDS: MORPHINE IV PRN ×2 (18:52→21:33)
[2019-01-15] MEDS: CELEXA PO SCH (20:19)
[2019-01-15] MEDS: ZOCOR PO SCH (20:19)
[2019-01-15] MEDS: NICODERM PATCH TD PRN (21:37)
[2019-01-16] MEDS: DUONEB (A & A) INH SCH ×6 (03:25→23:28)
[2019-01-16] MEDS: XANAX PO SCH ×3 (08:24→16:04)
[2019-01-16] MEDS: CARDIZEM PO SCH (08:24)
[2019-01-16] MEDS: NICODERM PATCH TD PRN (08:36)
[2019-01-16] MEDS: MORPHINE IV PRN ×4 (08:36→20:39)
[2019-01-16 09:32] LABS: BE 4.2 mmoll (-3.0-3.0); BLOOD TYPE ARTERIAL; HCO3-(ACT) 27.8 mmoll (20.0-26.0); METHB 1.1 % (0.0-1.5); O2(CT) 16.1 mL/dL (15.0-23.0); PCO2(98.6) 50 mmHg (35-45); SAMPLE BLOOD; SAO2 85.9 % (95.0-100.0); THB 13.8 g/dL (11.5-17.4); pH(98.6) 7.39 (7.35-7.45)
[2019-01-16 09:40] LABS: ALLEN TEST YES; MODALITY ROOM AIR; O2HB 82.9 % (95.0-99.0); PO2(98.6) 49 mmHg (60-100)
--- NOTE | 2019-01-16 11:49 | PROGRESS NOTE ---
DATE: 01/16/2019 SUBJECTIVE: Patient reports breathing better, although still complaining of left rib pain after fall. OBJECTIVE: Vital Signs: Temperature 98.3, heart rate 98, respiratory rate 18, blood pressure 172/82, O2 saturation 100% on room air. General Examination: This is a chronically ill-appearing 73-year-old male, lying in bed, in no acute distress. Cardiovascular: S1, S2 heard. No murmurs, gallops, or rubs. Regular rate and rhythm. Respiratory: Minimal wheezing noted in both pulmonary bases. Patient is not using any accessory muscles or having work of breathing. Abdomen: Soft. Nontender to palpation. Bowel sounds present. No organomegaly. Extremities: No clubbing, cyanosis, or edema. Peripheral pulses present in both legs. Neurological: Patient alert, oriented x3. Moves 4 extremities. LABORATORY DATA: The ABG from today shows pH 7.39 with pCO2 of 50, PO2 of 49. That sample was taken on room air. ASSESSMENT AND PLAN: 1. Acute hypoxemic respiratory failure secondary to chronic obstructive pulmonary disease exacerbation. At this point, we will continue with breathing treatment with DuoNeb every 4 hours scheduled, Rocephin 1 g IV q.24 h., and azithromycin 500 mg IV q.24 h. as well. The ABG from today shows hypoxemia so I think this patient may need to be on oxygen upon discharge. We will continue to monitor this patient closely. 2. Tobacco abuse. Patient is strongly advised to stop smoking. He continues to smoke 1 pack every 2 days, but he is completely aware of all the long-term consequences of continued smoking. DISPOSITION: We will continue current management, and this patient may be discharged within the next 24 to 48 hours. cc: Mario Mcfarland MD
[2019-01-16] MEDS: ROCEPHIN 1 GM in NS 50 ML IV SCH (14:25)
[2019-01-16] MEDS: ZITHROMAX 500 MG/NS 500 MG/250 ML IVPB IV SCH (15:57)
[2019-01-16] MEDS: CELEXA PO SCH (20:38)
[2019-01-16] MEDS: ZOCOR PO SCH (20:38)
[2019-01-16] MEDS ORDERED: HYTRIN PO SCH (21:00)
[2019-01-16] MEDS ORDERED: SEROQUEL PO SCH (21:00)
[2019-01-17] MEDS: DUONEB (A & A) INH SCH ×4 (03:38→15:09)
[2019-01-17 07:26] LABS: BASO# 0.01 X1000 (0.0-0.2); BASO% 0.1 % (0.0-0.8); EOS# 0.12 X1000 (0.0-0.7); EOS% 1.4 % (0.0-10.0); HEMATOCRIT 36.9 % (42.0-52.0); HEMOGLOBIN 12.2 g/dL (14.0-18.0); IMM GRAN# 0.02 X1000 (0.0-0.04); IMM GRAN% 0.2 % (0.0-0.5); LYMPH# 1.32 X1000 (1.2-3.4); LYMPH% 15.8 % (20.5-51.1); MCHC 33.1 g/dL (33-37); MCV 93.9 FL (81-99); MONO# 0.87 X1000 (0.11-0.59); MONO% 10.4 % (1.7-9.3); MPV 9.2 FL (7.4-10.4); NEUT# 6.02 X1000 (1.4-6.5); NEUT% 72.1 % (42.2-75.2); PLT 175 X1000 (130-400); RBC 3.93 XMIL (4.7-6.1); RDW 14.4 % (11.5-14.5); WBC 8.36 X1000 (4.8-10.8)
[2019-01-17 07:51] LABS: AGAP 9; BUN 14 mg/dL (8-22); CALCIUM 7.7 mg/dL (8.8-10.2); CHLORIDE 103 mmol/L (98-107); COSMO 283; CREATININE 0.7 mg/dL (0.7-1.2); ESTIMATED GFR > 60; GLUCOSE 126 mg/dL (70-104); POTASSIUM 4.4 mmol/L (3.5-5.1); SODIUM 141 mmol/L (136-145); TCO2 29 mmol/L (25-35)
[2019-01-17] MEDS ORDERED: OMNICEF PO SCH (09:00)
[2019-01-17] MEDS ORDERED: ZITHROMAX PO SCH (09:00)
[2019-01-17] MEDS: CARDIZEM PO SCH (10:32)
[2019-01-17] MEDS: XANAX PO SCH ×3 (10:32→16:37)
[2019-01-17 16:32] VITALS: BP 156/63
--- NOTE | 2019-01-18 14:25 | DISCHARGE SUMMARY ---
ADMISSION DATE: 01/15/2019 DISCHARGE DATE: 01/17/2019 CONSULTATIONS: None. PERTINENT PROCEDURES: Initial chest x-ray with suggestion of COPD that is stable. Rib x-ray: Fracture of the anterior aspect of the fifth rib. DISCHARGE DIAGNOSES: 1. Acute hypoxemic respiratory failure secondary to chronic obstructive pulmonary disease exacerbation. The patient was treated with DuoNebs, intravenous antibiotics. The patient is now saturating normally on room air. He was evaluated by Respiratory for possible need of home oxygen. He did not qualify. 2. Fractured fifth rib. Aware. The patient is to continue with turn, cough, and deep breathing. 3. Tobacco abuse. The patient has strongly been advised to stop smoking. The patient does continue to smoke 1 pack every 2 days. 4. Chronic obstructive pulmonary disease exacerbation. The patient will continue on home DuoNeb and oral antibiotics. HOSPITAL COURSE: Briefly, Mr. Miller is a 73-year-old male who presented to [facility] ER with complaints of left rib pain after a fall 3 days prior. He was found to have a fracture to the left side of his rib. He also had reported worsening shortness of breath. In the ED, he had O2 saturations of 87 on room air. Chest x-ray showed COPD. His laboratory data was essentially unremarkable. He was admitted for acute COPD exacerbation with acute respiratory failure. He was initiated on IV antibiotics, bronchodilators, aggressive pulmonary toilet, and supplemental O2. Over the past couple of days, the patient has had improvement. He is no longer requiring O2. He was evaluated by Respiratory for the need of home O2. He was saturating well on room air, as well as with ambulation. He will be discharged home on p.o. antibiotics. He is to continue with turn, cough, and deep breathing. He has been educated on smoking cessation as well as the means to quit. DISCHARGE VITAL SIGNS: Temperature is 97.7 degrees, heart rate 81, respirations 20, blood pressure 156/63, O2 is 92% on room air. DISCHARGE DIET: Regular. DISCHARGE MEDICATIONS: 1. Cardura 2 mg p.o. at bedtime. 2. Hytrin 1 mg p.o. at bedtime. 3. Seroquel 50 mg p.o. at bedtime. 4. Simvastatin 80 mg p.o. at bedtime. 5. Cardizem 60 mg p.o. daily. 6. Claritin 10 mg p.o. daily. 7. Celexa 20 mg p.o. at bedtime. 8. Omnicef 300 mg p.o. b.i.d. 9. Xanax 1 mg p.o. t.i.d. 10. Zithromax 250 mg p.o. daily. FOLLOWUP: Mr. Miller is being discharged home with self-care. He is to follow up with a primary care provider from the list that has been provided to him within the next 1 to 2 weeks. He can return to the ED or call 911 for any worsening of symptoms. Dictated by VIVIAN Escamilla for Diego Kay MD cc: Diego Kay MD
--- NOTE | 2019-01-18 15:35 | DISCHARGE SUMMARY ---
ADMISSION DATE: 01/15/2019 DISCHARGE DATE: 01/17/2019 ADDENDUM: Patient seen and examined by myself. Full note dictated and discussed with nurse practitioner. Patient was noted to be able to ambulate the holt today prior to discharge. His oxygen saturation remained stable and therefore he will be discharged home. Thankfully, he had uneventful hospital course otherwise. cc: Diego Kay MD
== END 2019-01-17 18:03 | disposition home or self-care (01) ==
LOC: P.MEDSURG 12:30 → P.ED 12:30 → SUATTDRO 14:02 → P.MEDSURG 14:15
PROVIDERS: ADMIT Family Medicine; ATTEND Family Medicine
CPT/HCPCS: 71020; 71046; 71100; 80048; 80053; 82550; 82553; 82805; 84484; 85025; 93005; 94640; 94761; 99285; A9270; J0456; J0696; J2270

== ENCOUNTER 2019-02-03 20:08 | Inpatient (IN) ==
[2019-02-03] MEDS ORDERED: LIBRIUM PO SCH (21:00)
--- NOTE | 2019-02-03 21:08 | EKG Report ---
Test Performed on : 02/03/2019 8:23:29 PM Test Reason : pain Blood Pressure : / mmHG Vent. Rate : 100 BPM Atrial Rate : 100 BPM P-R Int : 152 ms QRS Dur : 084 ms QT Int : 344 ms P-R-T Axes : 070 070 068 degrees QTc Int : 443 ms Normal sinus rhythm. Normal ECG When compared with ECG of 15-JAN-2019 13:07, (Unconfirmed) No significant change was found Unconfirmed Result
[2019-02-03 21:10] LABS: BASO# 0.02 X1000 (0.0-0.2); BASO% 0.2 % (0.0-0.8); EOS# 0.16 X1000 (0.0-0.7); EOS% 1.5 % (0.0-10.0); HEMATOCRIT 41.5 % (42.0-52.0); HEMOGLOBIN 14.7 g/dL (14.0-18.0); IMM GRAN# 0.05 X1000 (0.0-0.04); IMM GRAN% 0.5 % (0.0-0.5); LYMPH# 1.15 X1000 (1.2-3.4); LYMPH% 10.8 % (20.5-51.1); MCH 31.6 PG (27-31); MCHC 35.4 g/dL (33-37); MCV 89.2 FL (81-99); MONO# 0.73 X1000 (0.11-0.59); MONO% 6.8 % (1.7-9.3); MPV 9.5 FL (7.4-10.4); NEUT# 8.57 X1000 (1.4-6.5); NEUT% 80.2 % (42.2-75.2); PLT 72 X1000 (130-400); RBC 4.65 XMIL (4.7-6.1); RDW 18.1 % (11.5-14.5); WBC 10.68 X1000 (4.8-10.8)
[2019-02-03] MEDS ORDERED: LIBRIUM PO ONE (21:10)
[2019-02-03] MEDS ORDERED: LEVAQUIN 750 MG/D5W 750 MG/150 ML IVPB IV ONE (21:12)
--- NOTE | 2019-02-03 21:13 | PROVIDER DOCUMENTATION ---
This chart was entered by Klaudia Raygoza Scribe, acting as scribe for Lemuel Rodriguez MD. HPI-Respiratory General - General Chief Complaint: Chest Pain Stated Complaint: chest pain intoxicatd Time Seen by Provider: 02/03/19 20:40 Source: patient, EMS Allergies/Adverse Reactions: Patient Allergies Allergy/AdvReac Type Severity Reaction Status Date / Time Penicillins Allergy SHORTNESS Verified 01/15/19 13:03 OF BREATH Home Medications: Home Medication List Medication Instructions Recorded Confirmed Last Taken Type Alprazolam [Xanax] 1 mg PO TID #30 tab 08/28/17 02/03/19 2 Days Ago Rx ~01/13/19 Citalopram [Celexa] 20 mg PO HS #30 tab 08/28/17 02/03/19 01/14/19 Rx Simvastatin 80 mg PO QHS 11/05/17 02/03/19 01/14/19 History Diltiazem [Cardizem] 1 tab PO DAILY 01/15/19 02/03/19 01/15/19 History Doxazosin [Cardura] 2 mg PO QHS 01/15/19 02/03/19 Unknown History Loratadine [Claritin] 10 mg PO DAILY 01/15/19 02/03/19 Unknown History Quetiapine Fumarate [Seroquel] 50 mg PO QHS 01/15/19 02/03/19 Unknown History Terazosin [Hytrin] 1 mg PO QHS 01/15/19 02/03/19 Unknown History - History of Present Illness-Resp Nature of Presenting Problem: 73yowm with history of alcohol abuse,COPD,PTSD, and left anterior 5th rib fracture several weeks ago who presents by EMS complaining of persistent pain in left ribs, productive cough,fever, and SOB for past several days. Pt was seen in ED 01/15/19 for broken rib on left side and then admitted for observation for 3 days due to exacerbated COPD. Denies history of CAD. Quality of Pain: reports: aching Severity in ED: reports: moderate Onset/Duration: reports: just prior to arrival Timing: reports: still present, constant, changing over time Cough Quality/Degree: reports: moderate Episode Frequency: occasional episodes Current Respiratory Medication Therapy: Initiated see nurses note Modifying Factors: worse with: exertion, coughing, deep breath, lying down Associated Symptoms: reports: chest pain/soreness, cough, fever/chills, shortne ss of breath Similar Symptoms Previously?: Yes Recently seen or treated by another doctor?: Yes Review of Systems - Adult - REVIEW OF SYSTEMS - ADULT Constitutional: reports: see HPI, chills, fever, fatique Eyes: reports: no symptoms reported Ears, Nose, Mouth & Throat: reports: no symptoms reported Cardiovascular: reports: see HPI, chest pain. denies: heart murmur, irregular heart rate, palpitations, syncope Respiratory: reports: see HPI, cough, shortness of breath. denies: excessive sputum production, wheezing Gastrointestinal: reports: no symptoms reported Genitourinary: reports: no symptoms reported Musculoskeletal: reports: see HPI, other (left rib pain). denies: back pain, neck pain Integumentary: reports: no symptoms reported Neurological: reports: no symptoms reported Psychiatric: reports: no symptoms reported Endocrine: reports: no symptoms reported Hematologic/Lymphatic: reports: no symptoms reported Allergic/Immunologic: reports: no symptoms reported All Other Systems: Reviewed and Negative Past History - Adult - PAST MEDICAL HISTORY-ADULT Review of Records: reports: Nursing Assessment Review, Medications Reviewed, Social history reviewed & non-contributory. Major Childhood Illnesses: reports: Hepatitis B Cardiovascular: reports: HTN, hyperlipidemia Respiratory: reports: denies history Gastrointestinal: reports: hepatitis (B) Obstetrical/Gynecological: reports: denies history Genitourinary: reports: denies history Musculoskeletal: reports: denies history Neurological: reports: dementia Psychiatric: reports: depression, ptsd Endocrine/Immune: reports: denies history Other Conditions: reports: denies history - PRIOR SURGERIES/PROCEDURES Surgical/Procedure History: reports: orthopedic (extremity) - IMMUNIZATION STATUS Childhood Immunizations: See Nurse Assessment Flu Vaccine: See Nurse Assessment - FAMILY HISTORY Family History: reviewed, not pertinent - SOCIAL HISTORY Smoking: cigarettes, greater than 1 pack/day Provider spent 3-5 mins advising pt. on dangers of tobacco.: Discussed manners to quit use, and f/u contacts for add'l counseling. Physical Exam-General - PHYSICAL EXAM-ADULT Initial Vital Signs Reviewed: Yes - CONSTITUTIONAL General Appearance: alert, moderate distress. negative: anxious, combative - EYES Eyes: PERRL/EOMI, pink conjunctivae. negative: meningismus, pale conjunctivae, photophobia - HEAD, EARS, NOSE, MOUTH & THROAT HENMT: normocephalic/atraumatic, moist mucous membranes, TMs normal, pharynx normal, dental decay (no teeth). negative: angioedema, hearing deficit - NECK Neck: non-tender, full range of motion, supple, normal inspection. negative: Brudzinski's sign, carotid bruit, C-spine tenderness - RESPIRATORY Respiratory: normal breath sounds, no pleuratic chest pain, no respiratory distress, no accessory muscle use. negative: chest non-tender (left side), lungs clear, crackles, rales, rhonchi, stridor, wheezing - CARDIOVASCULAR Cardiovascular: normal peripheral pulses, regular rate, rhythm, no edema, no gallop, no JVD, no murmur. negative: bradycardia, tachycardia - GASTROINTESTINAL (ABDOMEN) Abdominal Exam: normal bowel sounds, non tender, soft. negative: distended, guarding, rigid, rebound, tenderness - LYMPHATIC Lymphatic: no adenopathy. negative: enlargement, striations, streaking - MUSCULOSKELETAL Back Exam: normal inspection, no CVA tenderness, no vertebral tenderness. negative: swelling Extremity: normal range of motion, non-tender, normal gait, normal inspection, no pedal edema, no calf tenderness, normal capillary refill, pelvis stable. negative: deformity, erythema - SKIN Integumentary: normal color, normal turgor, other (hot). 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 negative: facial droop, focal weakness - PSYCHIATRIC Psych/Mental Status: normal mood/affect, normal thought content, normal thought process, oriented x 3. negative: disoriented x 3, anxious, disheveled, depressed affect Progress - PLAN OF CARE/RESULTS Progress/Plan/Lab Results: 02/03/19 20:00 - Final Blood Orders Category Date Time Status Admit - [facility] Routine AdmDCTranf 02/03/19 22:03 Active Activity - Strict Bedrest ORDERED Care 02/03/19 22:03 Active Cardiac Monitoring DIRECTED Care 02/03/19 20:41 Completed Core Temperature ORDERED Care 02/03/19 20:40 Completed Neurological Check Q4H Care 02/03/19 22:04 Active Resuscitation Status Routine Care 02/03/19 22:03 Ordered Vital Signs Order Q 4-HR ASSESS Care 02/03/19 22:03 Active Z-Document. for Tele Applied ORDERED Care 02/03/19 22:04 Completed CHEST-PORTABLE [RAD] Stat Exams 02/03/19 20:42 Completed ALCOHOL BLOOD Stat Lab 02/03/19 21:00 Completed BLOOD CULTURE [BLDCUL] Stat Lab 02/03/19 20:00 Results CBC WITH ELECTRONIC DIFF [HEME] Stat Lab 02/03/19 21:00 Completed CMP [COMPREHENSIVE METABOLIC PANEL] [CHEM] Stat Lab 02/03/19 21:00 Completed GRAM STAIN [BLDCUL] Stat Lab 02/03/19 20:00 Results TROPONIN T Stat Lab 02/03/19 21:[address] W/POSS RFLX CULT [URINALYSIS] Stat Lab 02/03/19 20:30 Completed URINE CULTURE [RM] Routine Lab 02/03/19 20:30 Received 0.9% Sodium Chloride Inj [Ns] 1,000 ml Med 02/03/19 22:03 Discontinued IV 100 mls/hr Albuterol 2.5MG/Ipratrop 0.5MG [Duoneb (A & A)] Med 02/03/19 22:07 Discontinued 3 ml INH NOW ONE Chlordiazepoxide [Librium] Med 02/03/19 21:10 Discontinued 25 mg PO NOW ONE Chlordiazepoxide [Librium] Med 02/03/19 21:00 Discontinued 25 mg PO TID@0900,1500,2100 Levofloxacin 250 mg/D5w [Levaquin 250 mg/D5w] Med 02/04/19 21:30 Discontinued 250 mg in 50 ml IV Q24H Levofloxacin 750 mg/D5w [Levaquin 750 mg/D5w] Med 02/03/19 21:12 Discontinued 750 mg in 150 ml IV NOW Lorazepam [Ativan] Med 02/03/19 22:02 Discontinued 1 mg IV NOW ONE Lorazepam [Ativan] Med 02/03/19 22:08 Active 1 mg IV Q2H PRN PRN Morphine Med 02/03/19 22:03 Active 2 mg IV Q2H PRN PRN Mvi [M.v.i.-12] 10 ml Med 02/03/19 22:08 Discontinued Folic Acid 1 mg Magnesium Sulfate 1 gm Thiamine 100 mg 0.9% Sodium Chloride Inj [Ns] 1,000 ml IV NOW Ondansetron [Zofran] Med 02/03/19 22:03 Active 4 mg IV Q4H PRN PRN Aerosol Treatments Routine Oth 02/03/19 22:07 Completed Aerosol Treatments Stat Oth 02/03/19 22:07 Completed Oxygen Device Routine Oth 02/03/19 22:04 Completed Oxygen Device Stat Oth 02/03/19 20:43 Completed Telemetry [OM.EQ] Routine Oth 02/03/19 22:03 Active EKG [EKG] Stat Ther 02/03/19 20:43 Draft Transfer/Admit Order [TRANSFER] Routine Transfer 02/03/19 22:08 Completed Result Diagrams: 02/03/19 21:00 02/03/19 21:00 - XRAY 1 XRAY Study: Chest XRAY Interpretation: left lingular pneumonia - CONSULTS/PCP/HOSPITALIST Notification #1 *Consult/PCP/Hospitalist*: Dr. Kay, hospitalist Time Discussed: 21:55 Consult Disposition: Admit Departure - Departure Date of Disposition Decision: 02/04/19 Time of Disposition Decision: 00:20 DIAGNOSIS: Lingular pneumonia, COPD exacerbation Alcohol intoxication Qualifiers: Complication of substance-induced condition: with unspecified complication Qualified Code(s): F10.929 - Alcohol use, unspecified with intoxication, unspecified Disposition: ADMITTED INPATIENT 09 Certified Medical Emergency: Emergent Condition: Stable - Critical Care Note This patient required my direct & personal management of CC.: No Attestation - Physician/ LIZBETH Attestation Patient care was provided by Advanced Practice Provider:: No The physician spent face to face time with patient:: Yes Advanced Practice Provider documentation review:: Supervising physician onsite and consulted in the evaluation and care of this patient. The physician did have a face to face encounter with the patient. This chart was documented by the indicated scribe, (Klaudia Raygoza Scribe) and accurately reflects the services I performed and decisions made by me, Lemuel Rodriguez MD, as attested by the provider's signature.
[2019-02-03 21:25] LABS: BILIRUBIN URINE NEGATIVE (NEGATIVE); BLOOD URINE 1+ (NEGATIVE); CLARITY CLEAR (CLEAR); COLOR YELLOW; GLUCOSE URINE NEGATIVE (NEGATIVE); KETONE URINE TRACE mg/dL (NEGATIVE); LEUKOCYTES URINE NEGATIVE (NEGATIVE); NITRITE URINE NEGATIVE (NEGATIVE); PROTEIN URINE 1+(30 mg/dL) mg/dL (NEGATIVE); SP GRAVITY URINE 1.015; UROBILINOGEN URINE 4 mg/dL
[2019-02-03 21:36] LABS: URINE EPITHELIAL CELLS <10 /HPF (<10)
[2019-02-03 21:37] LABS: URINE BACTERIA 3+ /HFP; URINE YEAST NONE SEEN /HPF
[2019-02-03 21:38] LABS: AGAP 18; ALKALINE PHOSPHATASE 152 U/L (32-122); BUN 10 mg/dL (8-22); CALCIUM 7.9 mg/dL (8.8-10.2); CHLORIDE 101 mmol/L (98-107); COSMO 278; CREATININE 0.7 mg/dL (0.7-1.2); ESTIMATED GFR > 60; GLUCOSE 117 mg/dL (70-104); GOT 100 U/L (10-34); GPT 186 U/L (10-44); POTASSIUM 4.5 mmol/L (3.5-5.1); SODIUM 139 mmol/L (136-145); TCO2 21 mmol/L (25-35); TOTAL PROTEIN 6.8 g/dL (6.3-8.3)
[2019-02-03 21:38] LABS: URINE SOURCE CLEAN CATCH
[2019-02-03 21:39] LABS: URINE RBC <10 /HPF (<10)
--- NOTE | 2019-02-03 21:40 | Diag Imaging Result Doc PS360 ---
EXAM: CHEST-PORTABLE 02/03/2019 HISTORY: cough,fever, chest wall pain TECHNIQUE: AP portable at 2119 COMMENT: There is some obscuration of the left heart border which may indicate atelectasis or pneumonia in the lingula. This was not the case on 01/15/2019. IMPRESSION: Lingular atelectasis versus pneumonia. Electronically signed by Rober Baird 02/03/2019 9:37 PM
[2019-02-03] MEDS ORDERED: ATIVAN IV ONE (22:02)
[2019-02-03] MEDS ORDERED: ZOFRAN IV PRN (22:03)
[2019-02-03] MEDS: NS 1,000 ML IV ONE (22:03)
[2019-02-03] MEDS ORDERED: DUONEB (A & A) INH ONE (22:07)
[2019-02-03] MEDS ORDERED: M.V.I.-12 10 ML, FOLIC ACID 1 MG, MAGNESIUM SULFATE 1 GM, THIAMINE 100 MG in NS 1,000 ML IV ONE (22:08)
[2019-02-03] MEDS: MORPHINE IV PRN (23:00)
[2019-02-04] MEDS: NS 1,000 ML IV ONE (00:54)
[2019-02-04] MEDS: ATIVAN IV PRN ×4 (00:54→22:42)
[2019-02-04] MEDS: MORPHINE IV PRN ×5 (01:08→21:12)
[2019-02-04] MEDS: LIBRIUM PO SCH ×3 (08:15→21:12)
[2019-02-04] MEDS: DUONEB (A & A) INH SCH ×3 (15:37→23:03)
--- NOTE | 2019-02-04 18:16 | Diag Imaging Result Doc PS360 ---
CHEST-2 VIEWS - 02/04/2019 INDICATION: hypoxia COMPARISON: 02/03/2019 FINDINGS: Heart size is borderline. Pulmonary vascularity is normal. There is probably some mild right lower lobe infiltrate. No pneumothorax or pleural effusion. IMPRESSION: Mild right lower lobe infiltrate suggesting pneumonia. Correlate clinically. Electronically signed by Sukhi Barajas 02/04/2019 6:13 PM
--- NOTE | 2019-02-04 20:50 | HISTORY AND PHYSICAL ---
CHIEF COMPLAINT: Chest pain. HISTORY OF PRESENT ILLNESS: This is a 73-year-old gentleman with a history of alcohol abuse, COPD, PTSD, and recent left anterior rib fracture. He presents complaining of increasing shortness of breath, cough and fever over the last 3 to 4 days. He was found to have left lingular pneumonia. He was given Levaquin in the emergency room and is being admitted for further evaluation and treatment. PAST MEDICAL HISTORY: COPD, hypertension, hyperlipidemia, hepatitis B, depression, PTSD, alcohol use and abuse. PAST SURGICAL HISTORY: Of an orthopedic procedure. SOCIAL HISTORY: He lives with family members. He smokes about a pack of cigarettes every 2 to 3 days. He does drink alcohol daily with his last drink being prior to coming to the emergency room. ALLERGIES: Penicillin. HOME MEDICATIONS: A list will be obtained by the nursing staff and once verified, will review and restart as appropriate. REVIEW OF SYSTEMS: Discussed with the patient with pertinent positives stated in the HPI. He denied any syncope or dizziness, any palpitations, a productive cough, any nausea, vomiting, diarrhea, constipation, black or bloody vomitus or stools, any hematuria, dysuria, frequency, urgency. PHYSICAL EXAMINATION: GENERAL: This is a 73-year-old gentleman who presented to the emergency room who is sitting up in the stretcher in no distress. VITAL SIGNS: Blood pressure is 158/60 with a heart rate of 78, respirations are 18, temperature is 99.2 degrees with O2 saturations that are 92 to 96 percent. HEENT: Pupils equal, round, react to light. EOMs are intact. Sclerae are anicteric. Head is normocephalic, atraumatic. Mucous membranes are moist. NECK: Supple with trachea midline. CARDIOVASCULAR: Regular rate and rhythm. S1 and S2 appreciated. He has no lower extremity edema. Peripheral pulses are palpable x4 extremities and calves are nontender to palpation. PULMONARY: Breath sounds, he has rhonchi scattered throughout. They do not clear to cough. Chest rises and falls symmetric with respiration. GASTROINTESTINAL: Abdomen is soft, nontender, nondistended with bowel sounds in all 4 quadrants. GENITOURINARY: He has no CVA or suprapubic tenderness. NEUROLOGIC: He is alert and oriented x3. SKIN: Warm and dry. LABS: WBC is 10.6 with hemoglobin 14.7, hematocrit 41.5 and platelets of 72,000. Sodium 139, potassium 4.5, BUN 10, creatinine 0.7, glucose of 117, AST is 100, ALT 186, alkaline phosphatase is 152. Troponin is negative. Urinalysis reveals 2 to 5 white blood cells, 3+ bacteria with trace blood. Urine culture is pending. Blood alcohol is 243. Blood cultures and urine culture are pending. Chest x-ray reveals lingular atelectasis versus pneumonia on the left. Blood cultures have been obtained. He was given Levaquin in the emergency room. We will continue Levaquin 750 IV q.24 hours. Any further antibiotics will be culture driven. Start DuoNeb q.4 hours and incentive spirometer q.4 hours. ASSESSMENT AND PLAN: 1. Left lingular pneumonia. 2. Alcohol intoxication. Ativan 1 mg IV p.r.n. Will start a Librium taper, monitor for any signs of withdrawal. He was given a banana bag in the emergency room. 3. History of chronic obstructive pulmonary disease. DuoNebs, will check his home medications. 4. History of hepatitis B. Aware 5. Hypertension. Monitor vital signs and continue home medications as appropriate. 6. Left-sided rib pain 7. History of posttraumatic stress disorder. We are aware. 8. Thrombocytopenia. We will monitor his labs daily. We will review his home medications for any contributing factors for this. Is very likely due to alcohol. 9. For deep vein thrombosis prophylaxis will use SCDs and for gastrointestinal prophylaxis will use Prilosec. repeat a CBC, CMP, magnesium in the morning. Discussed with Dr Kay Further treatments pending hospital course. repeat a CBC, CMP, magnesium in the morning. Dictated by VIVIAN Esposito for Diego Kay MD cc: VIVIAN Esposito MD [facility]
--- NOTE | 2019-02-04 20:58 | HISTORY AND PHYSICAL ---
ADDENDUM: Patient seen and examined by myself. Full note dictated and discussed with nurse practitioner. Patient presented to the hospital initially complaining of chest pain, although now he says the pain is better. Patient unfortunately has a known history of COPD, PTSD and chronic alcohol abuse. Currently is noted to have elevated transaminases. We will admit him to the hospital, rule out [facility], continue to follow, continue to encourage him to stop drinking. cc: Diego Kay MD
[2019-02-04] MEDS: CELEXA PO SCH (21:12)
[2019-02-04] MEDS: HYTRIN PO SCH (21:12)
[2019-02-04] MEDS: CARDURA PO SCH (21:12)
[2019-02-04] MEDS: SEROQUEL PO SCH (21:12)
[2019-02-04] MEDS: LEVAQUIN 750 MG/D5W 750 MG/150 ML IVPB IV SCH (21:13)
[2019-02-04] MEDS ORDERED: LEVAQUIN 250 MG/D5W 250 MG/50 ML IVPB IV SCH (21:30)
[2019-02-04] MEDS ORDERED: VANCOMYCIN IV PER PHARMACY MISC SCH (22:15)
[2019-02-04] MEDS: VANCOMYCIN 1 GM/NS 1 GM/250 ML IVPB IV SCH (22:55)
[2019-02-05] MEDS: VANCOMYCIN 1 GM/NS 1 GM/250 ML IVPB IV SCH (00:57)
[2019-02-05] MEDS: LIBRIUM PO SCH ×4 (01:34→19:54)
[2019-02-05] MEDS: MORPHINE IV PRN ×6 (01:40→21:45)
[2019-02-05] MEDS: ATIVAN IV PRN ×4 (03:40→21:45)
[2019-02-05] MEDS: DUONEB (A & A) INH SCH ×6 (03:45→22:57)
[2019-02-05 05:36] LABS: HEMATOCRIT 38.6 % (42.0-52.0); HEMOGLOBIN 12.9 g/dL (14.0-18.0); MCHC 33.4 g/dL (33-37); MCV 92.8 FL (81-99); MPV 9.8 FL (7.4-10.4); RBC 4.16 XMIL (4.7-6.1); RDW 18.6 % (11.5-14.5); WBC 6.92 X1000 (4.8-10.8)
[2019-02-05] MEDS: PRILOSEC PO SCH ×2 (05:57→05:59)
[2019-02-05 06:23] LABS: AGAP 12; ALBUMIN 3.5 g/dL (3.5-5.0); ALKALINE PHOSPHATASE 117 U/L (32-122); BUN 12 mg/dL (8-22); CALCIUM 7.7 mg/dL (8.8-10.2); CHLORIDE 100 mmol/L (98-107); COSMO 273; CREATININE 0.7 mg/dL (0.7-1.2); ESTIMATED GFR > 60; GLUCOSE 92 mg/dL (70-104); GOT 60 U/L (10-34); GPT 108 U/L (10-44); MAGNESIUM 1.6 mg/dL (1.5-2.7); POTASSIUM 3.4 mmol/L (3.5-5.1); SODIUM 137 mmol/L (136-145); TCO2 25 mmol/L (25-35); TOTAL PROTEIN 6.1 g/dL (6.3-8.3)
[2019-02-05] MEDS ORDERED: KLOR-CON PO ONE (07:35)
[2019-02-05] MEDS: NICODERM PATCH TD SCH (10:50)
[2019-02-05] MEDS: CLARITIN PO SCH (10:51)
[2019-02-05] MEDS: CARDIZEM PO SCH (10:51)
--- NOTE | 2019-02-05 12:46 | PROGRESS NOTE ---
DATE: 02/05/2019 SUBJECTIVE: Patient has no new complaints. States he is feeling a bit better. His cough is improving. Denies any fevers, chills. Denies any current shortness of breath, although he has not really been out of bed. OBJECTIVE: Vital Signs: On physical examination, T-max 100.8 degrees, pulse 94, respiratory 20, BP 122/44. General: Patient is awake. He is in no current respiratory distress. He is sitting up in the bed eating breakfast. HEENT: Normocephalic. Neck: Supple. Cardiovascular: Regular rate. Chest: Positive rhonchi. Poor air movement, but improved. No wheezing. No crackles. Abdomen: Soft, nondistended. Extremities: Moves all extremities. Neurologic: No focal changes. ASSESSMENT: 1. Gram-positive cocci bacteremia. We started him on vancomycin until culture finishes. 2. Left lingular pneumonia. 3. Alcohol intoxication, improving. 4. Chronic obstructive pulmonary disease with mild exacerbation. 5. Thrombocytopenia, likely secondary to his chronic alcoholism. PLAN: We will continue patient in the hospital. Continue Librium taper, antibiotics. We have added vancomycin. We will follow his blood cultures. Get physical therapy involved. cc: Diego Kay MD
[2019-02-05 12:58] LABS: INR 1.02; PROTIME 13.9 Seconds (11.0-16.0); PTT 34.5 Seconds (22.3-41.8)
[2019-02-05 12:59] LABS: BASO# 0.01 X1000 (0.0-0.2); BASO% 0.1 % (0.0-0.8); HEMATOCRIT 37.5 % (42.0-52.0); HEMOGLOBIN 12.9 g/dL (14.0-18.0); IMM GRAN# 0.03 X1000 (0.0-0.04); IMM GRAN% 0.4 % (0.0-0.5); LYMPH# 1.07 X1000 (1.2-3.4); LYMPH% 13.1 % (20.5-51.1); MCH 31.7 PG (27-31); MCHC 34.4 g/dL (33-37); MCV 92.1 FL (81-99); MONO# 0.86 X1000 (0.11-0.59); MONO% 10.5 % (1.7-9.3); MPV 9.4 FL (7.4-10.4); NEUT# 6.21 X1000 (1.4-6.5); NEUT% 75.9 % (42.2-75.2); PLT 84 X1000 (130-400); RBC 4.07 XMIL (4.7-6.1); RDW 18.3 % (11.5-14.5); WBC 8.18 X1000 (4.8-10.8)
[2019-02-05 13:05] LABS: AGAP 10; ALBUMIN 3.5 g/dL (3.5-5.0); ALKALINE PHOSPHATASE 113 U/L (32-122); BUN 15 mg/dL (8-22); CALCIUM 7.7 mg/dL (8.8-10.2); CHLORIDE 101 mmol/L (98-107); COSMO 276; CREATININE 0.7 mg/dL (0.7-1.2); ESTIMATED GFR > 60; GLUCOSE 155 mg/dL (70-104); GOT 61 U/L (10-34); GPT 100 U/L (10-44); POTASSIUM 3.6 mmol/L (3.5-5.1); SODIUM 136 mmol/L (136-145); TCO2 25 mmol/L (25-35); TOTAL PROTEIN 5.6 g/dL (6.3-8.3)
[2019-02-05 13:06] LABS: CK PROFILE 404 U/L (24-204)
[2019-02-05 13:34] LABS: CK INDEX 0.8 (0.0-2.5); CK-MB 3.17 ng/mL (0.0-5.0)
[2019-02-05 16:03] LABS: BILIRUBIN URINE NEGATIVE (NEGATIVE); BLOOD URINE 3+ (NEGATIVE); CLARITY CLEAR (CLEAR); COLOR YELLOW; GLUCOSE URINE NEGATIVE (NEGATIVE); KETONE URINE TRACE mg/dL (NEGATIVE); LEUKOCYTES URINE TRACE (NEGATIVE); NITRITE URINE NEGATIVE (NEGATIVE); PH URINE 6.5; PROTEIN URINE 1+(30 mg/dL) mg/dL (NEGATIVE); UROBILINOGEN URINE 1 mg/dL
[2019-02-05 16:13] LABS: URINE SOURCE CLEAN CATCH
[2019-02-05 16:14] LABS: URINE BACTERIA 2+ /HFP; URINE EPITHELIAL CELLS >10 /HPF (<10)
[2019-02-05 16:15] LABS: URINE CAST NONE SEEN /LPF; URINE CRYSTAL NONE SEEN /HPF; URINE YEAST NONE SEEN /HPF
[2019-02-05] MEDS ORDERED: VANCOMYCIN 1,650 MG in NS 250 ML IV SCH (17:00)
[2019-02-05] MEDS: LEVAQUIN 750 MG/D5W 750 MG/150 ML IVPB IV SCH (21:45)
[2019-02-05] MEDS: CELEXA PO SCH (21:45)
[2019-02-05] MEDS: SEROQUEL PO SCH (21:46)
[2019-02-05] MEDS: CARDURA PO SCH (21:46)
[2019-02-05] MEDS: HYTRIN PO SCH (21:46)
[2019-02-06] MEDS: LIBRIUM PO SCH ×4 (01:08→20:10)
[2019-02-06] MEDS: ATIVAN IV PRN ×3 (02:49→22:11)
[2019-02-06] MEDS: MORPHINE IV PRN ×4 (02:49→22:10)
[2019-02-06] MEDS: DUONEB (A & A) INH SCH ×6 (03:15→23:11)
[2019-02-06] MEDS: PRILOSEC PO SCH (06:03)
[2019-02-06 06:24] LABS: HEMATOCRIT 37.5 % (42.0-52.0); HEMOGLOBIN 12.4 g/dL (14.0-18.0); MCH 30.8 PG (27-31); MCHC 33.1 g/dL (33-37); MCV 93.3 FL (81-99); MPV 10.7 FL (7.4-10.4); RBC 4.02 XMIL (4.7-6.1); RDW 18.1 % (11.5-14.5); WBC 7.23 X1000 (4.8-10.8)
[2019-02-06 06:42] LABS: AGAP 12; ALBUMIN 3.2 g/dL (3.5-5.0); ALKALINE PHOSPHATASE 100 U/L (32-122); BUN 12 mg/dL (8-22); CALCIUM 7.7 mg/dL (8.8-10.2); CHLORIDE 104 mmol/L (98-107); COSMO 279; CREATININE 0.6 mg/dL (0.7-1.2); ESTIMATED GFR > 60; GLUCOSE 104 mg/dL (70-104); GOT 50 U/L (10-34); GPT 80 U/L (10-44); MAGNESIUM 1.6 mg/dL (1.5-2.7); POTASSIUM 3.3 mmol/L (3.5-5.1); SODIUM 140 mmol/L (136-145); TCO2 24 mmol/L (25-35); TOTAL PROTEIN 5.9 g/dL (6.3-8.3)
[2019-02-06] MEDS ORDERED: KLOR-CON PO ONE (08:59)
[2019-02-06] MEDS ORDERED: LIBRIUM PO SCH (09:00)
[2019-02-06] MEDS: CLARITIN PO SCH (09:00)
[2019-02-06] MEDS: CARDIZEM PO SCH (09:00)
[2019-02-06] MEDS: NICODERM PATCH TD SCH (09:01)
[2019-02-06] MEDS: CLINDAMYCIN 600 MG/D5W 600 MG/50 ML IVPB IV SCH ×2 (13:11→20:10)
[2019-02-06] MEDS: MOTRIN PO PRN (13:11)
--- NOTE | 2019-02-06 13:11 | PROGRESS NOTE ---
DATE: 02/06/2019 SUBJECTIVE: Patient has no complaints. He says he still has a cough, but no production. Denies congestion. Denies chest pain. OBJECTIVE: Temperature current 98, although patient has continued to have fever, pulse 98, respiratory rate 18, BP 107/81.General: Patient is awake. He is in no distress. HEENT: Normocephalic. Neck: Supple. Cardiovascular: Regular rate. Chest: Positive rhonchi throughout. No crackles. No wheezing. Abdomen: Soft. Extremities: Moves all extremities. ASSESSMENT: 1. Left lingular pneumonia. Patient continues to have fever. He was on vancomycin for a questionable gram-positive cocci, which has been determined to be Staphylococcus epidermidis. Therefore, the vancomycin has been stopped. We will start clindamycin as he has continued to have fever today, and we will adjust antibiotics Levaquin for now. If fever continues, certainly may need to change this as well. 2. Acute alcohol intoxication, stable. 3. History of hepatitis B. 4. Hypertension. 5. Thrombocytopenia, stable. PLAN: Expect patient to be in the hospital 2-3 more days. We will adjust his antibiotics, repeat laboratories, chest x-ray cc: Diego Kay MD [facility]
[2019-02-06] MEDS: HYTRIN PO SCH (20:09)
[2019-02-06] MEDS: SEROQUEL PO SCH (20:09)
[2019-02-06] MEDS: CELEXA PO SCH (20:10)
[2019-02-06] MEDS: CARDURA PO SCH (20:10)
[2019-02-06] MEDS: LEVAQUIN 750 MG/D5W 750 MG/150 ML IVPB IV SCH ×2 (22:05→22:06)
[2019-02-07] MEDS: MORPHINE IV PRN ×7 (01:03→23:58)
[2019-02-07] MEDS: ATIVAN IV PRN (01:04)
[2019-02-07] MEDS: DUONEB (A & A) INH SCH ×6 (03:03→23:45)
[2019-02-07] MEDS: CLINDAMYCIN 600 MG/D5W 600 MG/50 ML IVPB IV SCH ×3 (04:04→20:16)
[2019-02-07 05:56] LABS: HEMATOCRIT 36.7 % (42.0-52.0); HEMOGLOBIN 12.1 g/dL (14.0-18.0); MCH 31.2 PG (27-31); MCV 94.6 FL (81-99); MPV 10.7 FL (7.4-10.4); RBC 3.88 XMIL (4.7-6.1); RDW 18.3 % (11.5-14.5); WBC 6.43 X1000 (4.8-10.8)
[2019-02-07] MEDS: PRILOSEC PO SCH (06:04)
[2019-02-07 06:12] LABS: AGAP 9; ALBUMIN 2.9 g/dL (3.5-5.0); ALKALINE PHOSPHATASE 97 U/L (32-122); BUN 14 mg/dL (8-22); CALCIUM 7.7 mg/dL (8.8-10.2); CHLORIDE 106 mmol/L (98-107); COSMO 282; CREATININE 0.7 mg/dL (0.7-1.2); ESTIMATED GFR > 60; GLUCOSE 131 mg/dL (70-104); GOT 63 U/L (10-34); GPT 75 U/L (10-44); MAGNESIUM 1.7 mg/dL (1.5-2.7); POTASSIUM 3.4 mmol/L (3.5-5.1); SODIUM 140 mmol/L (136-145); TCO2 25 mmol/L (25-35)
--- NOTE | 2019-02-07 06:52 | Diag Imaging Result Doc PS360 ---
EXAM: CHEST-2 VIEWS HISTORY: hypoxia TECHNIQUE: Chest two views COMPARISON: 02/04/2019 FINDINGS: The lungs are hyperexpanded. The pulmonary vessels are small. The heart is mildly enlarged. Basilar infiltrates are less pronounced. IMPRESSION: Mild interval improvement. Electronically signed by Keith Esquivel 02/07/2019 6:50 AM
[2019-02-07] MEDS: LIBRIUM PO SCH ×3 (10:09→20:16)
[2019-02-07] MEDS: CARDIZEM PO SCH (10:09)
[2019-02-07] MEDS: NICODERM PATCH TD SCH (10:09)
[2019-02-07] MEDS: CLARITIN PO SCH (10:09)
--- NOTE | 2019-02-07 14:26 | PROGRESS NOTE ---
DATE: 02/07/2019 SUBJECTIVE: Patient reports feeling better. Denies any fever or chills during the last 24 hours. OBJECTIVE: Vital Signs: Temperature 99.2, heart rate 108, respiratory rate 22, blood pressure 160/79, O2 saturation 94% on room air. General examination: This is a chronically ill- appearing, 73-year-old male, lying in bed, in no acute distress. Cardiovascular: S1, S2 heard. No murmurs, gallops, or rubs. Regular rate and rhythm. Respiratory: Coarse breath sounds in both pulmonary bases. Patient not using any accessory muscles or having work of breathing. Abdomen: Soft. Nontender to palpation. Bowel sounds present. No organomegaly. Extremities: No clubbing, cyanosis, or edema. Peripheral pulses present in both legs. Neurological: Patient is alert and oriented x3. Moves 4 extremities. LABORATORY DATA: Reviewed. ASSESSMENT AND PLAN: 1. Left lingular pneumonia. The patient has not had any fever during the last 24 hours. The patient is on Levaquin and clindamycin. I think because the patient is afebrile, we will continue with the same management. Blood cultures still pending. We will continue with the same medications. 2. Acute alcohol intoxication. Stable. 3. History of hepatitis B. Aware. 4. Hypertension. Blood pressure is in the range of 150s and 160s. The patient has been restarted on home medications. Because blood pressure is elevated, I prefer to start amlodipine 5 mg p.o. b.i.d. 5. Thrombocytopenia, stable. We will continue to monitor. 6. Disposition. I think if this patient is getting better tomorrow he can be discharged from the hospital. cc: Mario Mcfarland MD
[2019-02-07] MEDS: MOTRIN PO PRN (17:53)
[2019-02-07] MEDS: CARDURA PO SCH (20:16)
[2019-02-07] MEDS: SEROQUEL PO SCH (20:16)
[2019-02-07] MEDS: NORVASC PO SCH (20:16)
[2019-02-07] MEDS: CELEXA PO SCH (20:16)
[2019-02-07] MEDS: LEVAQUIN 750 MG/D5W 750 MG/150 ML IVPB IV SCH (23:58)
[2019-02-08] MEDS: MORPHINE IV PRN ×5 (01:50→10:34)
[2019-02-08] MEDS: DUONEB (A & A) INH SCH ×3 (03:20→11:02)
[2019-02-08] MEDS: CLINDAMYCIN 600 MG/D5W 600 MG/50 ML IVPB IV SCH (04:21)
[2019-02-08] MEDS: PRILOSEC PO SCH (06:05)
[2019-02-08 06:44] LABS: BASO# 0.02 X1000 (0.0-0.2); BASO% 0.3 % (0.0-0.8); EOS# 0.07 X1000 (0.0-0.7); EOS% 1.2 % (0.0-10.0); HEMATOCRIT 35.6 % (42.0-52.0); HEMOGLOBIN 11.8 g/dL (14.0-18.0); IMM GRAN# 0.02 X1000 (0.0-0.04); IMM GRAN% 0.3 % (0.0-0.5); LYMPH# 1.16 X1000 (1.2-3.4); LYMPH% 19.4 % (20.5-51.1); MCH 31.1 PG (27-31); MCHC 33.1 g/dL (33-37); MCV 93.9 FL (81-99); MONO# 1.12 X1000 (0.11-0.59); MONO% 18.7 % (1.7-9.3); MPV 9.7 FL (7.4-10.4); NEUT# 3.59 X1000 (1.4-6.5); NEUT% 60.1 % (42.2-75.2); PLT 85 X1000 (130-400); RBC 3.79 XMIL (4.7-6.1); RDW 17.7 % (11.5-14.5); WBC 5.98 X1000 (4.8-10.8)
[2019-02-08 06:56] LABS: AGAP 9; BUN 10 mg/dL (8-22); CALCIUM 7.9 mg/dL (8.8-10.2); CHLORIDE 102 mmol/L (98-107); COSMO 276; CREATININE 0.5 mg/dL (0.7-1.2); ESTIMATED GFR > 60; GLUCOSE 118 mg/dL (70-104); POTASSIUM 3.4 mmol/L (3.5-5.1); SODIUM 138 mmol/L (136-145); TCO2 27 mmol/L (25-35)
[2019-02-08 07:22] VITALS: BP 176/72
[2019-02-08] MEDS: NORVASC PO SCH (08:19)
[2019-02-08] MEDS: NICODERM PATCH TD SCH (08:19)
[2019-02-08] MEDS: CLARITIN PO SCH (08:19)
[2019-02-08] MEDS: CARDIZEM PO SCH (08:19)
[2019-02-08] MEDS: LIBRIUM PO SCH (08:19)
[2019-02-08] MEDS ORDERED: KLOR-CON PO ONE (09:15)
[2019-02-08] MEDS ORDERED: NORCO-5 PO ONE (12:31)
[2019-02-08] MEDS ORDERED: LEVAQUIN PO SCH (21:00)
--- NOTE | 2019-02-08 22:06 | DISCHARGE SUMMARY ---
ADMISSION DATE: 02/03/2019 DISCHARGE DATE: 02/08/2019 PRIMARY CARE PROVIDER: None. ADMISSION DIAGNOSES: 1. Left lingual pneumonia. 2. Alcohol intoxication. 3. History of chronic obstructive pulmonary disease. 4. History of hepatitis. 5. Hypertension. 6. Left-sided rib pain. 7. History of posttraumatic stress disorder. 8. Thrombocytopenia. 9. Deep vein thrombosis prophylaxis. FINAL DISCHARGE DIAGNOSES: 1. Left lingular pneumonia. 2. Alcohol intoxication. 3. History of hepatitis B. 4. Hypertension. 5. Orthostatic thrombocytopenia. 6. History of chronic obstructive pulmonary disease. PROCEDURES AND FINDINGS: This is a 73-year-old gentleman with a history of alcohol abuse, COPD, PST, and recent left anterior rib fracture. He presents complaining of increased shortness of breath, cough, and fever over the last 3 to 4 days and was found to have a left lingular pneumonia. He was given Levaquin and admitted for further evaluation and treatment. The patient's chest x-ray showed mild interval improvement upon discharge. EKG showed normal sinus rhythm with no significant changes. HOSPITAL COURSE AND THERAPY: Showed lab findings to be improved with WBCs down to 5.98, H H 11.8 and 35.6. Sodium 138, potassium is 3.4, chloride at 1:02, BUN was 10, and with a creatinine of 0.5. The patient was treated with Levaquin and clindamycin for left lingular pneumonia. Alcohol intoxication was stable. The patient was aware of the hepatitis B. The patient was managed for hypertension with amlodipine 5 mg p.o. b.i.d. Thrombocytopenia was stable. DISCHARGE MEDICATIONS: Include Celexa 20 mg p.o. at bedtime, diltiazem 60 mg 1 tab p.o. daily, loratadine 10 mg p.o. daily, nicotine patch 21 mg patch, quetiapine fumarate 50 mg tablets, Seroquel p.o. at bedtime, alprazolam 0.5 mg p.o. t.i.d. p.r.n., Norvasc 5 mg p.o. b.i.d., cefdinir 300 mg p.o. b.i.d. x14 capsules, clindamycin 300 mg p.o. q.6 hours x28 capsules, hydrocodone 1 tablet p.o. q.6 hours x20 tablets, simvastatin 80 mg p.o. at bedtime and terazosin 1 mg p.o. at bedtime. DISCHARGE DIET: Healthy heart. DISCHARGE ACTIVITY: As tolerated. DISPOSITION: To self-care to home. Follow up with PCP. Patient does not have a PCP at this time and can be given a physician referral number. I encouraged cessation of alcohol and smoking. The patient instructed to call for any problems or questions and verbalized understanding. DISCHARGE INSTRUCTIONS: All discharge instructions were reviewed with the patient. The patient verbalized understanding. this concludes a 35 minute discharge Dictated by VIVIAN Melendez for Mario Mcfarland MD Addendum: Patient seen and examined by myself. Agree with VIVIAN note. It reflects my assessment and plan. Patient is being discharged from hospital in stable condition. Will be seen by his primary care doctor at [facility] in one to two weeks. cc: Mario Mcfarland MD [facility]
== END 2019-02-08 14:00 | disposition home or self-care (01) | DRG 194 ==
LOC: P.ED 20:08 → P.MEDSURG 23:39 → SUATTDRO 23:39
PROVIDERS: ATTEND Internal Medicine
CPT/HCPCS: 71010; 71020; 71045; 71046; 80048; 80053; 80307; 80320; 81001; 82055; 82550; 82553; 83605; 83735; 84484; 85025; 85027; 85610; 85730; 87040; 87088; 87324; 93005; 94640; 94761; 94799; 96365; 96366; 96368; 96375; 97162; 97530; 99285; A9270; G0480; G6040; J1956; J2060; J2270; J3370; J3411; J3475; J7030; J7050